=== PATIENT | female | born 1940 | race Caucasian/White ===

== ENCOUNTER 2019-06-14 15:24 | Inpatient (IN) | payer MEDICARE, OTHER ==
[~2019-06-14] VITALS: Ht 157.5 cm; Wt 66.4 kg
--- NOTE | 2019-06-14 16:16 | EKG ---
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
--- NOTE | 2019-06-14 16:42 | RAD ---
EXAM: Chest, single view. HISTORY: Congestive heart failure. COMPARISON: None. FINDINGS: A frontal view of the chest is obtained. There is mild diffuse increased interstitial opacity likely due to mild congestion. There is superimposed suspected left basilar atelectasis or interstitial infiltrate. There is a small nodular right suprahilar opacity likely due to a prominent pulmonary vascular shadow. No pneumothorax is seen. The heart is normal in size. IMPRESSION: Suspected mild pulmonary congestion with superimposed left lower lobe atelectasis or infiltrate. Electronically signed by: Elvie Guaman MD (06/14/2019 4:38 PM) [place] [id number]
[2019-06-14 16:58] LABS: BASO % 0 % (0-3); EOS # 0.1 x10^3/uL (0.0-0.7); EOS % 1 % (0-3); HEMATOCRIT 35.6 % (36.0-47.0); HEMOGLOBIN 12.3 g/dL (12.0-15.5); LYMPH # 0.6 x10^3/uL (1.0-4.8); LYMPH % 6 % (24-48); MEAN CORPUSCULAR HEMOGLOBIN 31 pg (25-35); MEAN CORPUSCULAR HGB CONC 35 g/dL (31-37); MEAN CORPUSCULAR VOLUME 90 fL (79-100); MONO # 0.7 x10^3/uL (0.0-1.1); MONO % 7 % (0-9); NEUT # 8.8 x10^3/uL (1.8-7.7); NEUT % 86 % (31-73); PLATELET COUNT 394 x10^3/uL (140-400); RED BLOOD COUNT 3.95 x10^6/uL (3.50-5.40); RED CELL DISTRIBUTION WIDTH 14.5 % (11.5-14.5); WHITE BLOOD COUNT 10.2 x10^3/uL (4.0-11.0)
[2019-06-14 17:00] LABS: CALCIUM 9.1 mg/dL (8.5-10.1); GFR 53.8; POTASSIUM 4.8 mmol/L (3.5-5.1)
[2019-06-14 17:09] LABS: ALBUMIN/GLOBULIN RATIO 0.8 (1.0-1.7); MAGNESIUM 0.6 mg/dL (1.8-2.4); TOTAL BILIRUBIN 0.5 mg/dL (0.2-1.0); TOTAL PROTEIN 6.7 g/dL (6.4-8.2)
[2019-06-14 17:38] LABS: BILIRUBIN,URINE NEGATIVE (NEG); CLARITY,URINE CLEAR; COLOR,URINE YELLOW; NITRITE,URINE NEGATIVE (NEG); PH,URINE 5.5; PROTEIN,URINE >=300 mg/dL (NEG-TRACE)
[2019-06-14 17:44] LABS: BARBITURATES NEG (NEG); BENZODIAZEPINES NEG (NEG); CANNABINOIDS NEG (NEG); COCAINE NEG (NEG); METHADONE NEG (NEG); OPIATES NEG (NEG); PHENCYCLIDINE NEG (NEG)
[2019-06-14 17:52] LABS: HYALINE CASTS, URINE FEW /HPF
[2019-06-14 17:53] LABS: BACTERIA,URINE 0 /HPF (0-FEW); RBC,URINE OCC /HPF (0-2); WBC,URINE OCC /HPF (0-4)
[2019-06-14 18:03] LABS: AMPHETAMINE/METHAMPHETAMINE NEG (NEG)
[2019-06-14 18:11] LABS: % BANDS 5 % (0-9); % BASOS 1 % (0-3); % LYMPHS 5 % (24-48); % MONOS 8 % (0-10); % SEGS 81 % (35-66)
[2019-06-14 18:13] LABS: PLT ESTIMATE ADEQUATE (ADEQUATE)
[2019-06-14 18:23] LABS: ACANTHOCYTES FEW; BURR CELLS PRESENT; SCHISTOCYTES FEW; SPHEROCYTES OCC
[2019-06-14] MEDS ORDERED: IV NORMAL SALINE 1000ML BAG 1,000 ML IV ONE (19:30)
[2019-06-14] MEDS ORDERED: FUROSEMIDE 40 MG/4 ML VIAL. IVP ONE (19:30)
[2019-06-14] MEDS ORDERED: IV DEXTROSE 5% 250 ML BAG. IV PRN (19:30)
[2019-06-14] MEDS ORDERED: ACETAMINOPHEN 325 MG TABLET. PO PRN (19:30)
[2019-06-14] MEDS ORDERED: DEXTROSE 50% 25 GM / 50ML DISP.SYRIN. IV PRN (19:30)
[2019-06-14] MEDS ORDERED: ONDANSETRON PF 4 MG/2 ML VIAL. IV PRN (19:30)
[2019-06-14] MEDS ORDERED: MORPHINE SULFATE 2 MG/ML VIAL. IV PRN (19:30)
--- NOTE | 2019-06-14 20:10 | PHYS DOC ---
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 Patient was seen by the PCP and was sent to the ED to be admitted for CHF exacerbation. PCP had called me and informed me this patient has had increased weight gain with lower extremity edema and shortness of breath on exertion that he noted when patient showed up in the office. Patient is very hard of hearing. Patient denies any chest pain. On arrival to the ED patient stated she has not urinated since this morning. She states she has tried several times to urinate with no success. PCP Dr. Britton (AWAIS GENTILE APRN) Review of Systems Review of Systems Constitutional: Denies fever or chills [] Eyes: Denies change in visual acuity, redness, or eye pain [] HENT: Denies nasal congestion or sore throat [] Respiratory: Reports shortness of breath on exertion. Denies cough Cardiovascular: Reports CHF exacerbation, lower extremity swelling, weight gain GI: Denies abdominal pain, nausea, vomiting, bloody stools or diarrhea [] : Reports urinary retention. Denies dysuria or hematuria [] Musculoskeletal: Denies back pain or joint pain [] Integument: Denies rash or skin lesions [] Neurologic: Denies headache, focal weakness or sensory changes [] All other systems were reviewed and found to be within normal limits, except as documented in this note. (AWAIS GENTILE APRN) Current Medications Current Medications Current Medications Medications (Trade) Dose Ordered Sig/Carlos Manuel Start Time Stop Time Status Last Admin Dose Admin Acetaminophen (Tylenol) 650 mg PRN Q4HRS PRN 06/14/19 19:30 06/15/19 19:29 DC 06/14/19 23:16 650 MG Dextrose 250 ml PRN Q15MIN PRN 06/14/19 19:30 Dextrose (Dextrose 50%-Water Syringe) 12.5 gm PRN Q15MIN PRN 06/14/19 19:30 Furosemide (Lasix) 40 mg 1X ONCE 06/14/19 19:30 06/14/19 19:35 DC 06/14/19 20:20 40 MG Morphine Sulfate (Morphine Sulfate) 2 mg PRN Q2HR PRN 06/14/19 19:30 06/15/19 19:29 DC Ondansetron HCl (Zofran) 4 mg PRN Q8HRS PRN 06/14/19 19:30 06/15/19 19:29 DC Sodium Chloride 1,000 ml @ 60 mls/hr 1X ONCE 06/14/19 19:30 06/15/19 12:09 DC 06/14/19 20:36 60 MLS/HR (RYAN BOLIVAR MD) Allergies Allergies Allergies Coded Allergies Type Severity Reaction Last Updated Verified No Known Drug Allergies 06/14/19 No (RYAN BOLIVAR MD) Physical Exam Physical Exam Constitutional: Well developed, well nourished, no acute distress, non-toxic appearance. [] HENT: Normocephalic, atraumatic, bilateral external ears normal, oropharynx moist, no oral exudates, nose normal. [] Eyes: PERRLA, EOMI, conjunctiva normal, no discharge. [] Neck: Normal range of motion, no tenderness, supple, no stridor. [] Cardiovascular:Heart rate regular rhythm, no murmur [] Lungs & Thorax: Patient is short of air on exertion, lungs sound moist Abdomen: Bowel sounds normal, soft, no tenderness, no masses, no pulsatile masses. [] Skin: Warm, dry, no erythema, no rash. [] Back: No tenderness, no CVA tenderness. [] Extremities: No tenderness, no cyanosis, no clubbing, ROM intact, bilateral lower extremities with +2 pitting edema. Neurologic: Alert and oriented X 3, normal motor function, normal sensory function, no focal deficits noted. [] Psychologic: Affect normal, judgement normal, mood normal. [] (AWAIS GENTILE APRN) Current Patient Data Vital Signs Vital Signs Date Time Temp Pulse Resp B/P (MAP) Pulse Ox O2 Delivery O2 Flow Rate FiO2 06/14/19 19:07 102 22 130/83 (99) 94 Room Air 06/14/19 16:10 97.5 97.5 (RYAN BOLIVAR MD) Lab Values Laboratory Tests Test 06/14/19 16:41 06/14/19 17:30 White Blood Count 10.2 x10^3/uL (4.0-11.0) Red Blood Count 3.95 x10^6/uL (3.50-5.40) Hemoglobin 12.3 g/dL (12.0-15.5) Hematocrit 35.6 % (36.0-47.0) L Mean Corpuscular Volume 90 fL (79-100) Mean Corpuscular Hemoglobin 31 pg (25-35) Mean Corpuscular Hemoglobin Concent 35 g/dL (31-37) Red Cell Distribution Width 14.5 % (11.5-14.5) Platelet Count 394 x10^3/uL (140-400) Neutrophils (%) (Auto) 86 % (31-73) H Lymphocytes (%) (Auto) 6 % (24-48) L Monocytes (%) (Auto) 7 % (0-9) Eosinophils (%) (Auto) 1 % (0-3) Basophils (%) (Auto) 0 % (0-3) Neutrophils # (Auto) 8.8 x10^3/uL (1.8-7.7) H Lymphocytes # (Auto) 0.6 x10^3/uL (1.0-4.8) L Monocytes # (Auto) 0.7 x10^3/uL (0.0-1.1) Eosinophils # (Auto) 0.1 x10^3/uL (0.0-0.7) Basophils # (Auto) 0.0 x10^3/uL (0.0-0.2) Segmented Neutrophils % 81 % (35-66) H Band Neutrophils % 5 % (0-9) Lymphocytes % 5 % (24-48) L Monocytes % 8 % (0-10) Basophils % 1 % (0-3) Platelet Estimate Adequate (ADEQUATE) Spherocytes Occ Colp Cells Present Crenated Cell Acanthocytes (Spur Cells) Few Schistocytes Few Sodium Level 122 mmol/L (136-145) L Potassium Level 4.8 mmol/L (3.5-5.1) Chloride Level 90 mmol/L (98-107) L Carbon Dioxide Level 19 mmol/L (21-32) L Anion Gap 13 (6-14) Blood Urea Nitrogen 24 mg/dL (7-20) H Creatinine 1.0 mg/dL (0.6-1.0) Estimated GFR (Cockcroft-Gault) 53.8 BUN/Creatinine Ratio 24 (6-20) H Glucose Level 206 mg/dL (70-99) H Calcium Level 9.1 mg/dL (8.5-10.1) Magnesium Level 0.6 mg/dL (1.8-2.4) L Total Bilirubin 0.5 mg/dL (0.2-1.0) Aspartate Amino Transferase (AST) 25 U/L (15-37) Alanine Aminotransferase (ALT) 19 U/L (14-59) Alkaline Phosphatase 46 U/L (46-116) Creatine Kinase 191 U/L (26-192) Creatine Kinase MB (Mass) 5.7 ng/mL (0.0-3.6) H Creatine Kinase MB Relative Index 3.0 % (0-4) Troponin I Quantitative 0.019 ng/mL (0.000-0.055) PH-Exq-K-Type Natriuretic Peptide 32357 pg/mL (0-449) H Total Protein 6.7 g/dL (6.4-8.2) Albumin 3.0 g/dL (3.4-5.0) L Albumin/Globulin Ratio 0.8 (1.0-1.7) L Urine Collection Type U cath Urine Color Yellow Urine Clarity Clear Urine pH 5.5 Urine Specific [place] 1.025 Urine Protein >=300 mg/dL (NEG-TRACE) Urine Glucose (UA) Negative mg/dL (NEG) Urine Ketones (Stick) Negative mg/dL (NEG) Urine Blood Negative (NEG) Urine Nitrite Negative (NEG) Urine Bilirubin Negative (NEG) Urine Urobilinogen Dipstick 1.0 mg/dL (0.2 mg/dL) Urine Leukocyte Esterase Negative (NEG) Urine RBC Occ /HPF (0-2) Urine WBC Occ /HPF (0-4) Urine Bacteria 0 /HPF (0-FEW) Urine Hyaline Casts Few /HPF Urine Mucus Mod /LPF Urine Opiates Screen Neg (NEG) Urine Methadone Screen Neg (NEG) Urine Barbiturates Neg (NEG) Urine Phencyclidine Screen Neg (NEG) Urine Amphetamine/Methamphetamine Neg (NEG) Urine Benzodiazepines Screen Neg (NEG) Urine Cocaine Screen Neg (NEG) Urine Cannabinoids Screen Neg (NEG) Urine Ethyl Alcohol Neg (NEG) Laboratory Tests 06/14/19 16:41 Laboratory Tests 06/14/19 16:41 (RYAN BOLIVAR MD) EKG EKG [address] Hendrix sinus tachycardia, HR 105 no STEMI[] (AWAIS GENTILE APRN) Radiology/Procedures Radiology/Procedures []PROCEDURE: PORTABLE CHEST 1V EXAM: Chest, single view. HISTORY: Congestive heart failure. COMPARISON: None. FINDINGS: A frontal view of the chest is obtained. There is mild diffuse increased interstitial opacity likely due to mild congestion. There is superimposed suspected left basilar atelectasis or interstitial infiltrate. There is a small nodular right suprahilar opacity likely due to a prominent pulmonary vascular shadow. No pneumothorax is seen. The heart is normal in size. IMPRESSION: Suspected mild pulmonary congestion with superimposed left lower lobe atelectasis or infiltrate. Electronically signed by: Elvie Ochoa MD (06/14/2019 4:38 PM) [place] [id number] DICTATED and SIGNED BY: ELVIE OCHOA MD DATE: 06/14/199 (AWAIS GENTILE APRN) Course & Med Decision Making Course & Med Decision Making Pertinent Labs and Imaging studies reviewed. (See chart for details) This is a 78-year-old female patient presenting to the ED today with complaints of CHF exacerbation. Patient was seen by the PCP was noted to have gained weight and has lower extremity edema from CHF exacerbation. Patient denies any chest pain on arrival. She also reports urinary retention. BVI was done,>700 mL of urine noted in the bladder. Ortiz was placed. Chest x-ray noted for CHF and possible infiltrate. Patient is a febrile, WBC is normal i do not believe she has an infiltrate CMP with sodium of 122, creatinine is normal, BUN is 24, glucose is 206, anion gap is normal. Urine analysis is negative for infection, BNP 19,[address] Park who requested we give patient normal saline at 60 mL an hour, 1 dose of Lasix. Spoke with Dr. Garcia who accepted patient for admission. Routine consult placed for cardiology for tomorrow morning Patient's O2 sats remained at 95% on room air. Blood pressure is stable in the 130s 80s. (AWAIS GENTILE APRN) Course & Med Decision Making Staff Physician Addendum: I was working in the ER during the course of this patient's visit. I was available for consultation as needed, but I was not directly involved in the care of this patient. (RYAN BOLIVAR MD) Dragon Disclaimer Dragon Disclaimer This electronic medical record was generated, in whole or in part, using a voice recognition dictation system. (AWAIS GENTILE APRN) Departure Departure Impression: Primary Impression: CHF exacerbation Additional Impressions: Hyponatremia Hyperglycemia Disposition: ADMITTED INPATIENT Condition: STABLE Referrals: AN BRITTON MD (PCP) Problem Qualifiers Primary Impression: CHF exacerbation Heart failure type: unspecified Qualified Codes: I50.9 - Heart failure, unspecified AWAIS GENTILE APRN Jun 14, 2019 20:10 RYAN BOLIVAR MD Jun 16, 2019 01:06
--- NOTE | 2019-06-14 20:33 | HP ---
ADMIT DATE: 06/14/2019 CHIEF COMPLAINT: Shortness of breath. 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 Basically, she came in with shortness of breath and some edema. She is in heart failure. She rates it 7/10. She has associated weakness, has been occurring for several days. I discussed the case with ER physician. We are going to diurese her and consult Cardiology. It should be noted that her sodium level was quite low as well at 121. We are going to have Nephrology, give a second opinion about that. PAST MEDICAL HISTORY: CHF, diabetes, hypertension, hyperlipidemia, hypothyroidism, esophageal stricture and tonsillectomy. ALLERGIES: None. FAMILY HISTORY: Diabetes. SOCIAL HISTORY: She does not drink, smoke or take drugs. 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 MEDICATIONS: Reviewed, please refer to the MRAD. REVIEW OF SYSTEMS: GENERAL: No history of weight change, weakness or fevers. SKIN: No bruising, hair changes or rashes. EYES: No blurred, double or loss of vision. NOSE AND THROAT: No history of nosebleeds, hoarseness or sore throat. HEART: No history of palpitations, chest pain or shortness of breath on exertion. LUNGS: She complains of shortness of breath. GASTROINTESTINAL: Denies changes in appetite, nausea, vomiting, diarrhea or constipation. GENITOURINARY: No history of frequency, urgency, hesitancy or nocturia. NEUROLOGIC: Denies history of numbness, tingling, tremor or weakness. PSYCHIATRIC: No history of panic, anxiety or depression. ENDOCRINE: No history of heat or cold intolerance, polyuria or polydipsia. EXTREMITIES: Denies muscle weakness, joint pain, pain on walking or stiffness. PHYSICAL EXAMINATION: VITALS: Within normal limits and are stable. GENERAL: No apparent distress. Alert and oriented. HEENT: Head is normocephalic, atraumatic, pupils were equally round and reactive to light and accommodation. NECK: Supple, no JVD, no thyromegaly was noted. LUNGS: Clear to auscultation in all lung way without rhonchi or wheezing. HEART: RRR, S1, S2 present. Peripheral pulses intact, no obvious murmurs were noted. ABDOMEN: Soft, nontender. Positive bowel sounds no organomegaly, normal bowel sounds. EXTREMITIES: Without any cyanosis, clubbing, or edema. Pedal pulses intact, Homans sign is negative. NEUROLOGIC: Normal speech, normal tone. A & O x 3, moves all extremities, no obvious focal deficits. PSYCHIATRIC: Normal affect, normal mood. Stable. SKIN: No ulcerations or rashes, good skin turgor, no jaundice. VASCULAR: Good capillary refill, neurovascular bundle appears to be intact. LABORATORY DATA: Sodium is 121. DIAGNOSTIC DATA: Chest x-ray, it shows vascular congestion consistent with heart failure. ASSESSMENT AND PLAN: Acute on chronic systolic and diastolic heart failure. The patient has been admitted. We will consult Cardiology, consult Nephrology. Home meds, deep venous thrombosis prophylaxis. FULL CODE. PROGNOSIS: Guarded. CHELSEA HONG DO DR: ROSELYN/vance JOB#: [id number] / [id number]
--- NOTE | 2019-06-14 22:15 | NUR ---
Patient admitted to room 114 as CVC overflow. Patient made comfortable in bed with understanding of unit surroundings and protocols. Patient placed on monitor. ER one time order of IV fluids not continued due to retaining fluid and wet lung sounds. All questions and concerns addressed. Will continue to monitor patient condition.
[2019-06-14 23:00] VITALS: BP 132/89
[2019-06-14] MEDS ORDERED: AMLO1CAP5 PO (23:00)
[2019-06-14] MEDS ORDERED: METF500T16 PO (23:00)
[2019-06-14] MEDS ORDERED: ATOR10TA60 PO (23:00)
[2019-06-14] MEDS ORDERED: FENO54TA PO (23:00)
[2019-06-14] MEDS ORDERED: PANT40TA77 PO (23:00)
[2019-06-14] MEDS ORDERED: LEVO100T5 PO (23:00)
[2019-06-14] MEDS ORDERED: CYAN-25 IM (23:00)
[2019-06-15] VITALS (7 sets, daily range): BP systolic 97–172; BP diastolic 60–86
[2019-06-15 05:04] LABS: BASO # 0.1 x10^3/uL (0.0-0.2); BASO % 1 % (0-3); EOS # 0.2 x10^3/uL (0.0-0.7); EOS % 2 % (0-3); HEMATOCRIT 35.9 % (36.0-47.0); HEMOGLOBIN 12.6 g/dL (12.0-15.5); LYMPH # 0.9 x10^3/uL (1.0-4.8); LYMPH % 9 % (24-48); MEAN CORPUSCULAR HEMOGLOBIN 32 pg (25-35); MEAN CORPUSCULAR HGB CONC 35 g/dL (31-37); MEAN CORPUSCULAR VOLUME 90 fL (79-100); MONO % 10 % (0-9); NEUT # 8.2 x10^3/uL (1.8-7.7); NEUT % 79 % (31-73); PLATELET COUNT 377 x10^3/uL (140-400); RED BLOOD COUNT 3.99 x10^6/uL (3.50-5.40); RED CELL DISTRIBUTION WIDTH 14.7 % (11.5-14.5); WHITE BLOOD COUNT 10.3 x10^3/uL (4.0-11.0)
[2019-06-15 05:13] LABS: CREATININE 0.9 mg/dL (0.6-1.0); GFR 60.7; POTASSIUM 4.6 mmol/L (3.5-5.1)
--- NOTE | 2019-06-15 07:17 | NUR ---
Routine consults called to answering service for Gissell Park and [place].
[2019-06-15] MEDS: INSULIN LISPRO 300 UNITS/3 ML VIAL. SQ SCH ×3 (08:00→16:33)
[2019-06-15 08:22] LABS: CHOLESTEROL/HDL RATIO 2.3
[2019-06-15] MEDS: NYSTATIN TOPICAL POWDER 15GM BOTTLE. TP SCH ×2 (09:43→22:30)
--- NOTE | 2019-06-15 10:26 | PDOC2 ---
ANGELO PADILLA COMP FIELD CASE MANAGER 06/15/19 1026: CARDIAC CONSULT DATE OF CONSULT Date of Consult DATE: 06/15/19 TIME: 10:23 REASON FOR CONSULT Reason for Consult: CHF REFERRING PHYSICIAN Referring Physician: Estephania SOURCE Source: Chart review HISTORY OF PRESENT ILLNESS HISTORY OF PRESENT ILLNESS This is a pleasant 78 yo female admitted for complains of shortness of breath. 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 She thinks her symptoms started after her Vit B12 shot last Wednesday. This has been going on at least in the last 3 days. No chest pain but at times does feel dizzy. No nausea or vomiting but has been difficult for her to lay flat. No palpitations. Also her legs have become more swollen that usual. She also has been having difficulty emptying her bladder. Her SOA is worse when walking. She also has recent decreased to her thyroid medication dosing from 125 to 100 mcg. No prior hx of CAD, VTE, or arrhythmias. PAST MEDICAL HISTORY Past Medical History Past Medical History: CHF, Diabetes-Type II, GERD, High Cholesterol, Hypertension, Hypothyroid, Other Additional Past Medical Histor: esophageal stricture Past Surgical History: Tonsillectomy, Other Additional Past Surgical Histo: dialation of esophagus Cardiovascular: HTN, Hyperlipidemia Pulmonary: Pneumonia CENTRAL NERVOUS SYSTEM: Other (No pertinent history) GI: GERD, Other (esophageal stricture) Heme/Onc: No pertinent hx Hepatobiliary: No pertinent hx Psych: No pertinent hx Musculoskeletal: Osteoarthritis Rheumatologic: No pertinent hx Infectious disease: No pertinent hx ENT: No pertinent hx Endocrine: Diabetes (2), Hypothyroidism Dermatology: No pertinent hx PAST SURGICAL HISTORY Past Surgical History: Tonsillectomy, Other (esophageal dilatation) FAMILY HISTORY Family History noncontributory SOCIAL HISTORY Smoke: No ALCOHOL: none Drugs: None Lives: with Family CURRENT MEDICATIONS CURRENT MEDICATIONS Current Medications Medications (Trade) Dose Ordered Sig/Carlos Manuel Route PRN Reason Start Time Stop Time Status Last Admin Dose Admin Furosemide (Lasix) 40 mg 1X ONCE IVP 06/14/19 19:30 06/14/19 19:35 DC 06/14/19 20:20 Acetaminophen (Tylenol) 650 mg PRN Q4HRS PRN PO FEVER 06/14/19 19:30 06/15/19 19:29 06/14/19 23:16 Sodium Chloride 1,000 ml @ 60 mls/hr 1X ONCE IV 06/14/19 19:30 06/15/19 12:09 06/14/19 20:36 Nystatin (Nystop) 1 meg BID TP 06/15/19 09:00 06/15/19 09:43 ALLERGIES ALLERGIES: Coded Allergies: No Known Drug Allergies (Unverified , 06/14/19) ROS Review of System 14 point ROS evaluated with pertinent positives noted per HPI PHYSICAL EXAM General: Alert, Oriented X3, Cooperative, mild distress HEENT: Atraumatic, Mucous membr. moist/pink Lungs: Other (basilar crackles) Heart: Regular rate (SR/ST), Normal S1, Normal S2, Other (S4; distant heart sounds) Extremities: No cyanosis, Other (4+ bilateral LE pitting edema) Skin: No breakdown, No significant lesion Neuro: Normal speech, Sensation intact Psych/Mental Status: Mental status NL, Mood NL MUSCULOSKELETAL: Osteoarthritic changes both hands VITALS/I&O VITALS/I&O: Vital Signs Date Time Temp Pulse Resp B/P (MAP) Pulse Ox O2 Delivery O2 Flow Rate FiO2 06/15/19 07:00 97.6 74 18 102/60 (74) 96 Room Air 97.6 I & O 06/14/19 06/14/19 06/15/19 15:00 23:00 07:00 Output Total 950 ml Balance -950 ml LABS Lab: Laboratory Tests Test 06/14/19 16:41 06/14/19 17:30 06/15/19 04:45 06/15/19 07:36 White Blood Count 10.2 x10^3/uL (4.0-11.0) 10.3 x10^3/uL (4.0-11.0) Red Blood Count 3.95 x10^6/uL (3.50-5.40) 3.99 x10^6/uL (3.50-5.40) Hemoglobin 12.3 g/dL (12.0-15.5) 12.6 g/dL (12.0-15.5) Hematocrit 35.6 % (36.0-47.0) L 35.9 % (36.0-47.0) L Mean Corpuscular Volume 90 fL (79-100) 90 fL (79-100) Mean Corpuscular Hemoglobin 31 pg (25-35) 32 pg (25-35) Mean Corpuscular Hemoglobin Concent 35 g/dL (31-37) 35 g/dL (31-37) Red Cell Distribution Width 14.5 % (11.5-14.5) 14.7 % (11.5-14.5) H Platelet Count 394 x10^3/uL (140-400) 377 x10^3/uL (140-400) Neutrophils (%) (Auto) 86 % (31-73) H 79 % (31-73) H Lymphocytes (%) (Auto) 6 % (24-48) L 9 % (24-48) L Monocytes (%) (Auto) 7 % (0-9) 10 % (0-9) H Eosinophils (%) (Auto) 1 % (0-3) 2 % (0-3) Basophils (%) (Auto) 0 % (0-3) 1 % (0-3) Neutrophils # (Auto) 8.8 x10^3/uL (1.8-7.7) H 8.2 x10^3/uL (1.8-7.7) H Lymphocytes # (Auto) 0.6 x10^3/uL (1.0-4.8) L 0.9 x10^3/uL (1.0-4.8) L Monocytes # (Auto) 0.7 x10^3/uL (0.0-1.1) 1.0 x10^3/uL (0.0-1.1) Eosinophils # (Auto) 0.1 x10^3/uL (0.0-0.7) 0.2 x10^3/uL (0.0-0.7) Basophils # (Auto) 0.0 x10^3/uL (0.0-0.2) 0.1 x10^3/uL (0.0-0.2) Segmented Neutrophils % 81 % (35-66) H Band Neutrophils % 5 % (0-9) Lymphocytes % 5 % (24-48) L Monocytes % 8 % (0-10) Basophils % 1 % (0-3) Platelet Estimate Adequate (ADEQUATE) Spherocytes Occ Deb Cells Present Crenated Cell Acanthocytes (Spur Cells) Few Schistocytes Few Sodium Level 122 mmol/L (136-145) L 123 mmol/L (136-145) L Potassium Level 4.8 mmol/L (3.5-5.1) 4.6 mmol/L (3.5-5.1) Chloride Level 90 mmol/L (98-107) L 90 mmol/L (98-107) L Carbon Dioxide Level 19 mmol/L (21-32) L 23 mmol/L (21-32) Anion Gap 13 (6-14) 10 (6-14) Blood Urea Nitrogen 24 mg/dL (7-20) H 22 mg/dL (7-20) H Creatinine 1.0 mg/dL (0.6-1.0) 0.9 mg/dL (0.6-1.0) Estimated GFR (Cockcroft-Gault) 53.8 60.7 BUN/Creatinine Ratio 24 (6-20) H Glucose Level 206 mg/dL (70-99) H 150 mg/dL (70-99) H Calcium Level 9.1 mg/dL (8.5-10.1) 9.0 mg/dL (8.5-10.1) Magnesium Level 0.6 mg/dL (1.8-2.4) L Total Bilirubin 0.5 mg/dL (0.2-1.0) Aspartate Amino Transferase (AST) 25 U/L (15-37) Alanine Aminotransferase (ALT) 19 U/L (14-59) Alkaline Phosphatase 46 U/L (46-116) Creatine Kinase 191 U/L (26-192) Creatine Kinase MB (Mass) 5.7 ng/mL (0.0-3.6) H Creatine Kinase MB Relative Index 3.0 % (0-4) Troponin I Quantitative 0.019 ng/mL (0.000-0.055) 0.024 ng/mL (0.000-0.055) SO-Rry-W-Type Natriuretic Peptide 92787 pg/mL (0-449) H Total Protein 6.7 g/dL (6.4-8.2) Albumin 3.0 g/dL (3.4-5.0) L Albumin/Globulin Ratio 0.8 (1.0-1.7) L Urine Collection Type U cath Urine Color Yellow Urine Clarity Clear Urine pH 5.5 Urine Specific [place] 1.025 Urine Protein >=300 mg/dL (NEG-TRACE) Urine Glucose (UA) Negative mg/dL (NEG) Urine Ketones (Stick) Negative mg/dL (NEG) Urine Blood Negative (NEG) Urine Nitrite Negative (NEG) Urine Bilirubin Negative (NEG) Urine Urobilinogen Dipstick 1.0 mg/dL (0.2 mg/dL) Urine Leukocyte Esterase Negative (NEG) Urine RBC Occ /HPF (0-2) Urine WBC Occ /HPF (0-4) Urine Bacteria 0 /HPF (0-FEW) Urine Hyaline Casts Few /HPF Urine Mucus Mod /LPF Urine Opiates Screen Neg (NEG) Urine Methadone Screen Neg (NEG) Urine Barbiturates Neg (NEG) Urine Phencyclidine Screen Neg (NEG) Urine Amphetamine/Methamphetamine Neg (NEG) Urine Benzodiazepines Screen Neg (NEG) Urine Cocaine Screen Neg (NEG) Urine Cannabinoids Screen Neg (NEG) Urine Ethyl Alcohol Neg (NEG) Triglycerides Level 84 mg/dL (0-150) Cholesterol Level 112 mg/dL (0-200) LDL Cholesterol, Calculated 47 mg/dL (0-100) VLDL Cholesterol, Calculated 17 mg/dL (0-40) Non-HDL Cholesterol Calculated 64 mg/dL (0-129) HDL Cholesterol 48 mg/dL (40-60) Cholesterol/HDL Ratio 2.3 Thyroid Stimulating Hormone (TSH) 7.661 uIU/mL (0.358-3.74) H Glucose (Fingerstick) 136 mg/dL (70-99) H Laboratory Tests 06/14/19 16:41 06/15/19 04:45 Laboratory Tests 06/14/19 16:41 06/15/19 04:45 ASSESSMENT/PLAN ASSESSMENT/PLAN 1. Acute CHF with possible combined systolic/diastolic dysfunction 2. Hyponatremia: due to above 3. Urinary retention: defer to PCP, witt in place 4. Hypothyroidism: TSH not on goal at 7, recent decreased in dosing. per PCP 5. DM2 6. HTN: controlled Recommendations 1. Replace Mg 2. Lasix therapy 3. Further recommendations pending TTE LORENA LEWIS MD 06/15/192027: CARDIAC CONSULT ASSESSMENT/PLAN ASSESSMENT/PLAN Patient seen and examined. Agree with MACHINE HEEL BUILDER's assessment and plan. Continue diuresis for ac on chr systolic HF 2D echo showed EF 15-20% Plan cardiac cath once CHF better compensated Thank you for your consultation ANGELO PADILLA COMP FIELD CASE MANAGER Jun 15, 2019 10:26 LORENA LEWIS MD Jun 15, 2019 20:28
[2019-06-15] MEDS ORDERED: FUROSEMIDE 40 MG/4 ML VIAL. IVP ONE ×2 (10:30→12:00)
[2019-06-15] MEDS ORDERED: CONTRAST GIVEN. MC PRN (10:45)
[2019-06-15] MEDS: ENOXAPARIN 40 MG/0.4 ML SYRINGE. SQ SCH (10:58)
--- NOTE | 2019-06-15 11:33 | PDOC ---
[employer] PROGRESS NOTE Chief Complaint Chief Complaint CHF exacerbation Hyponatremia Urinary retention Hyperglycemia History of Present Illness History of Present Illness 06/15/19 Pt seen and examined in seat Pt was not in acute distress Chart and labs reviewed Sodium was 123, up from 122 BUN was 22, down from 24 Cr remained 0.9 D/w RN Vitals/I&O Vitals/I&O: Vital Signs Date Time Temp Pulse Resp B/P (MAP) Pulse Ox O2 Delivery O2 Flow Rate FiO2 06/15/19 07:00 97.6 74 18 102/60 (74) 96 Room Air 97.6 I & O 06/14/19 06/14/19 06/15/19 14:59 22:59 06:59 Output Total 950 ml Balance -950 ml Physical Exam General: Alert, Oriented X3, Cooperative, No acute distress Heart: Regular rate Lungs: Clear Extremities: No clubbing, No cyanosis Skin: No rashes Labs Labs: Laboratory Tests Test 06/14/19 16:41 06/14/19 17:30 06/15/19 04:45 06/15/19 07:36 White Blood Count 10.2 x10^3/uL (4.0-11.0) 10.3 x10^3/uL (4.0-11.0) Red Blood Count 3.95 x10^6/uL (3.50-5.40) 3.99 x10^6/uL (3.50-5.40) Hemoglobin 12.3 g/dL (12.0-15.5) 12.6 g/dL (12.0-15.5) Hematocrit 35.6 % (36.0-47.0) 35.9 % (36.0-47.0) Mean Corpuscular Volume 90 fL (79-100) 90 fL (79-100) Mean Corpuscular Hemoglobin 31 pg (25-35) 32 pg (25-35) Mean Corpuscular Hemoglobin Concent 35 g/dL (31-37) 35 g/dL (31-37) Red Cell Distribution Width 14.5 % (11.5-14.5) 14.7 % (11.5-14.5) Platelet Count 394 x10^3/uL (140-400) 377 x10^3/uL (140-400) Neutrophils (%) (Auto) 86 % (31-73) 79 % (31-73) Lymphocytes (%) (Auto) 6 % (24-48) 9 % (24-48) Monocytes (%) (Auto) 7 % (0-9) 10 % (0-9) Eosinophils (%) (Auto) 1 % (0-3) 2 % (0-3) Basophils (%) (Auto) 0 % (0-3) 1 % (0-3) Neutrophils # (Auto) 8.8 x10^3/uL (1.8-7.7) 8.2 x10^3/uL (1.8-7.7) Lymphocytes # (Auto) 0.6 x10^3/uL (1.0-4.8) 0.9 x10^3/uL (1.0-4.8) Monocytes # (Auto) 0.7 x10^3/uL (0.0-1.1) 1.0 x10^3/uL (0.0-1.1) Eosinophils # (Auto) 0.1 x10^3/uL (0.0-0.7) 0.2 x10^3/uL (0.0-0.7) Basophils # (Auto) 0.0 x10^3/uL (0.0-0.2) 0.1 x10^3/uL (0.0-0.2) Segmented Neutrophils % 81 % (35-66) Band Neutrophils % 5 % (0-9) Lymphocytes % 5 % (24-48) Monocytes % 8 % (0-10) Basophils % 1 % (0-3) Platelet Estimate Adequate (ADEQUATE) Spherocytes Occ Hudson Cells Present Crenated Cell Acanthocytes Few Schistocytes Few Sodium Level 122 mmol/L (136-145) 123 mmol/L (136-145) Potassium Level 4.8 mmol/L (3.5-5.1) 4.6 mmol/L (3.5-5.1) Chloride Level 90 mmol/L (98-107) 90 mmol/L (98-107) Carbon Dioxide Level 19 mmol/L (21-32) 23 mmol/L (21-32) Anion Gap 13 (6-14) 10 (6-14) Blood Urea Nitrogen 24 mg/dL (7-20) 22 mg/dL (7-20) Creatinine 1.0 mg/dL (0.6-1.0) 0.9 mg/dL (0.6-1.0) Estimated GFR (Cockcroft-Gault) 53.8 60.7 BUN/Creatinine Ratio 24 (6-20) Glucose Level 206 mg/dL (70-99) 150 mg/dL (70-99) Calcium Level 9.1 mg/dL (8.5-10.1) 9.0 mg/dL (8.5-10.1) Magnesium Level 0.6 mg/dL (1.8-2.4) 0.7 mg/dL (1.8-2.4) Total Bilirubin 0.5 mg/dL (0.2-1.0) Aspartate Amino Transf (AST/SGOT) 25 U/L (15-37) Alanine Aminotransferase (ALT/SGPT) 19 U/L (14-59) Alkaline Phosphatase 46 U/L (46-116) Creatine Kinase 191 U/L (26-192) Creatine Kinase MB (Mass) 5.7 ng/mL (0.0-3.6) Creatine Kinase MB Relative Index 3.0 % (0-4) Troponin I Quantitative 0.019 ng/mL (0.000-0.055) 0.024 ng/mL (0.000-0.055) UH-Awo-K-Type Natriuretic Peptide 95973 pg/mL (0-449) Total Protein 6.7 g/dL (6.4-8.2) Albumin 3.0 g/dL (3.4-5.0) Albumin/Globulin Ratio 0.8 (1.0-1.7) Urine Collection Type U cath Urine Color Yellow Urine Clarity Clear Urine pH 5.5 Urine Specific [place] 1.025 Urine Protein >=300 mg/dL (NEG-TRACE) Urine Glucose (UA) Negative mg/dL (NEG) Urine Ketones (Stick) Negative mg/dL (NEG) Urine Blood Negative (NEG) Urine Nitrite Negative (NEG) Urine Bilirubin Negative (NEG) Urine Urobilinogen Dipstick 1.0 mg/dL (0.2 mg/dL) Urine Leukocyte Esterase Negative (NEG) Urine RBC Occ /HPF (0-2) Urine WBC Occ /HPF (0-4) Urine Bacteria 0 /HPF (0-FEW) Urine Hyaline Casts Few /HPF Urine Mucus Mod /LPF Urine Opiates Screen Neg (NEG) Urine Methadone Screen Neg (NEG) Urine Barbiturates Neg (NEG) Urine Phencyclidine Screen Neg (NEG) Urine Amphetamine/Methamphetamine Neg (NEG) Urine Benzodiazepines Screen Neg (NEG) Urine Cocaine Screen Neg (NEG) Urine Cannabinoids Screen Neg (NEG) Urine Ethyl Alcohol Neg (NEG) Triglycerides Level 84 mg/dL (0-150) Cholesterol Level 112 mg/dL (0-200) LDL Cholesterol, Calculated 47 mg/dL (0-100) VLDL Cholesterol, Calculated 17 mg/dL (0-40) Non-HDL Cholesterol Calculated 64 mg/dL (0-129) HDL Cholesterol 48 mg/dL (40-60) Cholesterol/HDL Ratio 2.3 Thyroid Stimulating Hormone (TSH) 7.661 uIU/mL (0.358-3.74) Glucose (Fingerstick) 136 mg/dL (70-99) Review of Systems Review of Systems: Pt denies fever Pt denies NICKERSON Assessment and Plan Assessmemt and Plan Problems Medical Problems: (1) CHF exacerbation Status: Acute (2) Hyperglycemia Status: Acute (3) Hyponatremia Status: Acute Assessment CHF exacerbation Hyponatremia Hyperglycemia Plan ICU monitoring Serial labs DVT prophylaxis Await further input from cardiology Await input from nephrology Full code Home meds Comment Review of Relevant I have reviewed the following items kameron (where applicable) has been applied. Medications: Current Medications Medications (Trade) Dose Ordered Sig/Carlos Manuel Route PRN Reason Start Time Stop Time Status Last Admin Dose Admin Furosemide (Lasix) 40 mg 1X ONCE IVP 06/14/19 19:30 06/14/19 19:35 DC 06/14/19 20:20 Acetaminophen (Tylenol) 650 mg PRN Q4HRS PRN PO FEVER 06/14/19 19:30 06/15/19 19:29 06/14/19 23:16 Sodium Chloride 1,000 ml @ 60 mls/hr 1X ONCE IV 06/14/19 19:30 06/15/19 12:09 06/14/19 20:36 Nystatin (Nystop) 1 meg BID TP 06/15/19 09:00 06/15/19 09:43 Furosemide (Lasix) 40 mg 1X ONCE IVP 06/15/19 10:30 06/15/19 10:39 DC 06/15/19 10:57 Enoxaparin Sodium (Lovenox 40mg Syringe) 40 mg Q24H SQ 06/15/19 11:00 06/15/19 10:58 CHELSEA HONG III DO Jun 15, 2019 11:33
--- NOTE | 2019-06-15 11:51 | PDOC2 ---
CONSULT Date of Consult Date of Consult DATE: 06/15/19 TIME: 11:45 History of Present Illness Reason for Visit: THIS IS A 78 YR OLD WITH SOB FOR COUPLE DAYS. STATES SHE HAS HAD PROGRESSIVE LE SWELLING FOR WEEKS. NOW CANT LAY FLAT. SHE HAS ALSO NOTED WEIGHT GAIN. HER NA IS 122 ON ADMIT. NO CONFUSION REPORTED, NO OTHER NEURO SYMPTOMS REPORTED. RENAL FXN STABLE. SHE ALSO HAD URINARY RETENTION WITH ABOUT 700 MLS AND A PEPPER HAS BEEN PLACED. SHE HAS NOT BEEN ON ANY DIURETICS. SHE DOES HAVE A HX OF HYPOTHYROIDISM Past Medical History Cardiovascular: HTN, Hyperlipidemia Endocrine: Diabetes, Hypothyroidism Family History Family History: No Significant Social History No ALCOHOL: none Drugs: None Lives: with Family Current Problem List Problem List Problems Medical Problems: (1) CHF exacerbation Status: Acute (2) Hyperglycemia Status: Acute (3) Hyponatremia Status: Acute Current Medications Current Medications Current Medications Furosemide (Lasix) 40 mg 1X ONCE IVP Last administered on 06/14/19at 20:20; Start 06/14/19 at 19:30; Stop 06/14/19 at 19:35; Status DC Ondansetron HCl (Zofran) 4 mg PRN Q8HRS PRN IV NAUSEA/VOMITING; Start 06/14/19 at 19:30; Stop 06/15/19 at 19:29 Morphine Sulfate (Morphine Sulfate) 2 mg PRN Q2HR PRN IV PAIN; Start 06/14/19 at 19:30; Stop 06/15/19 at 19:29 Acetaminophen (Tylenol) 650 mg PRN Q4HRS PRN PO FEVER Last administered on 06/14/19at 23:16; Start 06/14/19 at 19:30; Stop 06/15/19 at 19:29 Sodium Chloride 1,000 ml @ 60 mls/hr 1X ONCE IV Last administered on 06/14/19at 20:36; Start 06/14/19 at 19:30; Stop 06/15/19 at 12:09 Insulin Human Lispro (HumaLOG) 0-5 UNITS TIDWMEALS SQ ; Start 06/15/19 at 08:00 Dextrose (Dextrose 50%-Water Syringe) 12.5 gm PRN Q15MIN PRN IV SEE COMMENTS; Start 06/14/19 at 19:30 Dextrose 250 ml PRN Q15MIN PRN IV SEE COMMENTS; Start 06/14/19 at 19:30 Nystatin (Nystop) 1 meg BID TP Last administered on 06/15/19at 09:43; Start 06/15/19 at 09:00 Furosemide (Lasix) 40 mg DAILY IVP ; Start 06/16/19 at 09:00 Furosemide (Lasix) 40 mg 1X ONCE IVP Last administered on 06/15/19at 10:57; Start 06/15/19 at 10:30; Stop 06/15/19 at 10:39; Status DC Enoxaparin Sodium (Lovenox 40mg Syringe) 40 mg Q24H SQ Last administered on 06/15/19at 10:58; Start 06/15/19 at 11:00 Info (CONTRAST GIVEN -- Rx MONITORING) 1 each PRN DAILY PRN MC SEE COMMENTS; Start 06/15/19 at 10:45; Stop 06/17/19 at 10:44 Active Scripts Active Reported Atorvastatin Calcium 10 Mg Tablet 1 Tab PO DAILY Metformin Hcl 500 Mg Tablet 500 Mg PO BIDWMEALS Fenofibrate 54 Mg Tablet 1 Tab PO QPM Lotrel 5-10 Mg Capsule (Amlodipine Besylate/Benazepril) 1 Each Capsule 1 Cap PO DAILY Vitamin B-12 (Cyanocobalamin (Vitamin B-12)) 1,000 Mcg Tablet 1,000 Mcg IM QMONTH Pantoprazole Sodium (Pantoprazole Sodium) 40 Mg Tablet.dr 40 Mg PO DAILYAC Levothyroxine Sodium 100 Mcg Tablet 1 Tab PO DAILY Allergies Allergies: Coded Allergies: No Known Drug Allergies (Unverified , 06/14/19) ROS General: YES: Fatigue, Malaise PSYCHOLOGICAL ROS: YES: Anxiety, Depression Eyes: Yes Decreased vision ALLERGY AND IMMUNOLOGY: YES: Seasonal Allergies Respiratory: YES: Cough, Orthopnea, Shortness of breath Cardiovascular: yes Orthopnea, yes Paroxysmal Noc. Dyspnea, yes Edema Gastrointestinal: Yes Constipation Genitourinary: YES Other (NOCTURIA) Musculoskeletal: Yes Muscular Weakness Neurological: Yes Weakness Skin: Yes Dry Skin Physical Exam General: Alert, Oriented X3, Cooperative, No acute distress HEENT: Atraumatic, PERRLA Lungs: Other (BASILAR RALES) Abdomen: Normal bowel sounds, Soft Extremities: No clubbing, No cyanosis, Other (4+ LE EDEMA) Neuro: Normal speech, Sensation intact Psych/Mental Status: Mental status NL, Mood NL MUSCULOSKELETAL: No joint tenderness, No deformity Vitals VITALS Vital Signs Date Time Temp Pulse Resp B/P (MAP) Pulse Ox O2 Delivery O2 Flow Rate FiO2 06/15/19 07:00 97.6 74 18 102/60 (74) 96 Room Air 97.6 Labs Labs Laboratory Tests Test 06/14/19 16:41 06/14/19 17:30 06/15/19 04:45 06/15/19 07:36 White Blood Count 10.2 x10^3/uL (4.0-11.0) 10.3 x10^3/uL (4.0-11.0) Red Blood Count 3.95 x10^6/uL (3.50-5.40) 3.99 x10^6/uL (3.50-5.40) Hemoglobin 12.3 g/dL (12.0-15.5) 12.6 g/dL (12.0-15.5) Hematocrit 35.6 % (36.0-47.0) 35.9 % (36.0-47.0) Mean Corpuscular Volume 90 fL (79-100) 90 fL (79-100) Mean Corpuscular Hemoglobin 31 pg (25-35) 32 pg (25-35) Mean Corpuscular Hemoglobin Concent 35 g/dL (31-37) 35 g/dL (31-37) Red Cell Distribution Width 14.5 % (11.5-14.5) 14.7 % (11.5-14.5) Platelet Count 394 x10^3/uL (140-400) 377 x10^3/uL (140-400) Neutrophils (%) (Auto) 86 % (31-73) 79 % (31-73) Lymphocytes (%) (Auto) 6 % (24-48) 9 % (24-48) Monocytes (%) (Auto) 7 % (0-9) 10 % (0-9) Eosinophils (%) (Auto) 1 % (0-3) 2 % (0-3) Basophils (%) (Auto) 0 % (0-3) 1 % (0-3) Neutrophils # (Auto) 8.8 x10^3/uL (1.8-7.7) 8.2 x10^3/uL (1.8-7.7) Lymphocytes # (Auto) 0.6 x10^3/uL (1.0-4.8) 0.9 x10^3/uL (1.0-4.8) Monocytes # (Auto) 0.7 x10^3/uL (0.0-1.1) 1.0 x10^3/uL (0.0-1.1) Eosinophils # (Auto) 0.1 x10^3/uL (0.0-0.7) 0.2 x10^3/uL (0.0-0.7) Basophils # (Auto) 0.0 x10^3/uL (0.0-0.2) 0.1 x10^3/uL (0.0-0.2) Segmented Neutrophils % 81 % (35-66) Band Neutrophils % 5 % (0-9) Lymphocytes % 5 % (24-48) Monocytes % 8 % (0-10) Basophils % 1 % (0-3) Platelet Estimate Adequate (ADEQUATE) Spherocytes Occ Deb Cells Present Crenated Cell Acanthocytes Few Schistocytes Few Sodium Level 122 mmol/L (136-145) 123 mmol/L (136-145) Potassium Level 4.8 mmol/L (3.5-5.1) 4.6 mmol/L (3.5-5.1) Chloride Level 90 mmol/L (98-107) 90 mmol/L (98-107) Carbon Dioxide Level 19 mmol/L (21-32) 23 mmol/L (21-32) Anion Gap 13 (6-14) 10 (6-14) Blood Urea Nitrogen 24 mg/dL (7-20) 22 mg/dL (7-20) Creatinine 1.0 mg/dL (0.6-1.0) 0.9 mg/dL (0.6-1.0) Estimated GFR (Cockcroft-Gault) 53.8 60.7 BUN/Creatinine Ratio 24 (6-20) Glucose Level 206 mg/dL (70-99) 150 mg/dL (70-99) Calcium Level 9.1 mg/dL (8.5-10.1) 9.0 mg/dL (8.5-10.1) Magnesium Level 0.6 mg/dL (1.8-2.4) 0.7 mg/dL (1.8-2.4) Total Bilirubin 0.5 mg/dL (0.2-1.0) Aspartate Amino Transf (AST/SGOT) 25 U/L (15-37) Alanine Aminotransferase (ALT/SGPT) 19 U/L (14-59) Alkaline Phosphatase 46 U/L (46-116) Creatine Kinase 191 U/L (26-192) Creatine Kinase MB (Mass) 5.7 ng/mL (0.0-3.6) Creatine Kinase MB Relative Index 3.0 % (0-4) Troponin I Quantitative 0.019 ng/mL (0.000-0.055) 0.024 ng/mL (0.000-0.055) GH-Nvo-M-Type Natriuretic Peptide 73502 pg/mL (0-449) Total Protein 6.7 g/dL (6.4-8.2) Albumin 3.0 g/dL (3.4-5.0) Albumin/Globulin Ratio 0.8 (1.0-1.7) Urine Collection Type U cath Urine Color Yellow Urine Clarity Clear Urine pH 5.5 Urine Specific [place] 1.025 Urine Protein >=300 mg/dL (NEG-TRACE) Urine Glucose (UA) Negative mg/dL (NEG) Urine Ketones (Stick) Negative mg/dL (NEG) Urine Blood Negative (NEG) Urine Nitrite Negative (NEG) Urine Bilirubin Negative (NEG) Urine Urobilinogen Dipstick 1.0 mg/dL (0.2 mg/dL) Urine Leukocyte Esterase Negative (NEG) Urine RBC Occ /HPF (0-2) Urine WBC Occ /HPF (0-4) Urine Bacteria 0 /HPF (0-FEW) Urine Hyaline Casts Few /HPF Urine Mucus Mod /LPF Urine Opiates Screen Neg (NEG) Urine Methadone Screen Neg (NEG) Urine Barbiturates Neg (NEG) Urine Phencyclidine Screen Neg (NEG) Urine Amphetamine/Methamphetamine Neg (NEG) Urine Benzodiazepines Screen Neg (NEG) Urine Cocaine Screen Neg (NEG) Urine Cannabinoids Screen Neg (NEG) Urine Ethyl Alcohol Neg (NEG) Triglycerides Level 84 mg/dL (0-150) Cholesterol Level 112 mg/dL (0-200) LDL Cholesterol, Calculated 47 mg/dL (0-100) VLDL Cholesterol, Calculated 17 mg/dL (0-40) Non-HDL Cholesterol Calculated 64 mg/dL (0-129) HDL Cholesterol 48 mg/dL (40-60) Cholesterol/HDL Ratio 2.3 Thyroid Stimulating Hormone (TSH) 7.661 uIU/mL (0.358-3.74) Glucose (Fingerstick) 136 mg/dL (70-99) Laboratory Tests Test 06/14/19 16:41 06/14/19 17:30 06/15/19 04:45 06/15/19 07:36 White Blood Count 10.2 x10^3/uL (4.0-11.0) 10.3 x10^3/uL (4.0-11.0) Red Blood Count 3.95 x10^6/uL (3.50-5.40) 3.99 x10^6/uL (3.50-5.40) Hemoglobin 12.3 g/dL (12.0-15.5) 12.6 g/dL (12.0-15.5) Hematocrit 35.6 % (36.0-47.0) 35.9 % (36.0-47.0) Mean Corpuscular Volume 90 fL (79-100) 90 fL (79-100) Mean Corpuscular Hemoglobin 31 pg (25-35) 32 pg (25-35) Mean Corpuscular Hemoglobin Concent 35 g/dL (31-37) 35 g/dL (31-37) Red Cell Distribution Width 14.5 % (11.5-14.5) 14.7 % (11.5-14.5) Platelet Count 394 x10^3/uL (140-400) 377 x10^3/uL (140-400) Neutrophils (%) (Auto) 86 % (31-73) 79 % (31-73) Lymphocytes (%) (Auto) 6 % (24-48) 9 % (24-48) Monocytes (%) (Auto) 7 % (0-9) 10 % (0-9) Eosinophils (%) (Auto) 1 % (0-3) 2 % (0-3) Basophils (%) (Auto) 0 % (0-3) 1 % (0-3) Neutrophils # (Auto) 8.8 x10^3/uL (1.8-7.7) 8.2 x10^3/uL (1.8-7.7) Lymphocytes # (Auto) 0.6 x10^3/uL (1.0-4.8) 0.9 x10^3/uL (1.0-4.8) Monocytes # (Auto) 0.7 x10^3/uL (0.0-1.1) 1.0 x10^3/uL (0.0-1.1) Eosinophils # (Auto) 0.1 x10^3/uL (0.0-0.7) 0.2 x10^3/uL (0.0-0.7) Basophils # (Auto) 0.0 x10^3/uL (0.0-0.2) 0.1 x10^3/uL (0.0-0.2) Segmented Neutrophils % 81 % (35-66) Band Neutrophils % 5 % (0-9) Lymphocytes % 5 % (24-48) Monocytes % 8 % (0-10) Basophils % 1 % (0-3) Platelet Estimate Adequate (ADEQUATE) Spherocytes Occ Deb Cells Present Crenated Cell Acanthocytes Few Schistocytes Few Sodium Level 122 mmol/L (136-145) 123 mmol/L (136-145) Potassium Level 4.8 mmol/L (3.5-5.1) 4.6 mmol/L (3.5-5.1) Chloride Level 90 mmol/L (98-107) 90 mmol/L (98-107) Carbon Dioxide Level 19 mmol/L (21-32) 23 mmol/L (21-32) Anion Gap 13 (6-14) 10 (6-14) Blood Urea Nitrogen 24 mg/dL (7-20) 22 mg/dL (7-20) Creatinine 1.0 mg/dL (0.6-1.0) 0.9 mg/dL (0.6-1.0) Estimated GFR (Cockcroft-Gault) 53.8 60.7 BUN/Creatinine Ratio 24 (6-20) Glucose Level 206 mg/dL (70-99) 150 mg/dL (70-99) Calcium Level 9.1 mg/dL (8.5-10.1) 9.0 mg/dL (8.5-10.1) Magnesium Level 0.6 mg/dL (1.8-2.4) 0.7 mg/dL (1.8-2.4) Total Bilirubin 0.5 mg/dL (0.2-1.0) Aspartate Amino Transf (AST/SGOT) 25 U/L (15-37) Alanine Aminotransferase (ALT/SGPT) 19 U/L (14-59) Alkaline Phosphatase 46 U/L (46-116) Creatine Kinase 191 U/L (26-192) Creatine Kinase MB (Mass) 5.7 ng/mL (0.0-3.6) Creatine Kinase MB Relative Index 3.0 % (0-4) Troponin I Quantitative 0.019 ng/mL (0.000-0.055) 0.024 ng/mL (0.000-0.055) ST-Sml-C-Type Natriuretic Peptide 38708 pg/mL (0-449) Total Protein 6.7 g/dL (6.4-8.2) Albumin 3.0 g/dL (3.4-5.0) Albumin/Globulin Ratio 0.8 (1.0-1.7) Urine Collection Type U cath Urine Color Yellow Urine Clarity Clear Urine pH 5.5 Urine Specific [place] 1.025 Urine Protein >=300 mg/dL (NEG-TRACE) Urine Glucose (UA) Negative mg/dL (NEG) Urine Ketones (Stick) Negative mg/dL (NEG) Urine Blood Negative (NEG) Urine Nitrite Negative (NEG) Urine Bilirubin Negative (NEG) Urine Urobilinogen Dipstick 1.0 mg/dL (0.2 mg/dL) Urine Leukocyte Esterase Negative (NEG) Urine RBC Occ /HPF (0-2) Urine WBC Occ /HPF (0-4) Urine Bacteria 0 /HPF (0-FEW) Urine Hyaline Casts Few /HPF Urine Mucus Mod /LPF Urine Opiates Screen Neg (NEG) Urine Methadone Screen Neg (NEG) Urine Barbiturates Neg (NEG) Urine Phencyclidine Screen Neg (NEG) Urine Amphetamine/Methamphetamine Neg (NEG) Urine Benzodiazepines Screen Neg (NEG) Urine Cocaine Screen Neg (NEG) Urine Cannabinoids Screen Neg (NEG) Urine Ethyl Alcohol Neg (NEG) Triglycerides Level 84 mg/dL (0-150) Cholesterol Level 112 mg/dL (0-200) LDL Cholesterol, Calculated 47 mg/dL (0-100) VLDL Cholesterol, Calculated 17 mg/dL (0-40) Non-HDL Cholesterol Calculated 64 mg/dL (0-129) HDL Cholesterol 48 mg/dL (40-60) Cholesterol/HDL Ratio 2.3 Thyroid Stimulating Hormone (TSH) 7.661 uIU/mL (0.358-3.74) Glucose (Fingerstick) 136 mg/dL (70-99) Assessment/Plan Assessment/Plan IMP SEVERE HYPONATREMIA URINARY RETENTION LE EDEMA DM II HTN HYPOTHYROIDISM CHF PLAN DIURESIS WITH LOOP DIURETICS CARDIOLOGY EVALUATION ECHOCARDIOGRAM WILL BE HELPFUL MAINTAIN PEPPER CHECK TSH LOW FLOW NS WILL FOLLOW DU VELAZQUEZ MD Jun 15, 2019 11:51
--- NOTE | 2019-06-15 13:51 | NUR ---
See orders, patient verb. understanding POC: magnesium and lasix IV, NPO for possible cardiac procedure. Patient sitting up in chair, no SOB, visiting with friends. Continue cares and monitor.
[2019-06-15] MEDS ORDERED: MAGNESIUM SULFATE 4GM 100 ML IV ONE (14:00)
--- NOTE | 2019-06-15 14:11 | NUR ---
Suze minaya. called, release NPO, no procedure today. Patient verb. understanding POC.
[2019-06-15] MEDS: FUROSEMIDE 40 MG/4 ML VIAL. IVP SCH ×2 (14:27→22:36)
--- NOTE | 2019-06-15 14:35 | NUR ---
SS following for discharge planning. SS reviewed pt chart. Pt is from home and is currently on room air. SS will continue to follow for discharge planning.
[2019-06-15] MEDS: ASPIRIN ENTERIC COATED 81 MG TABLET.DR. PO SCH (17:55)
[2019-06-15] MEDS: ZOLPIDEM 5 MG TABLET. PO PRN (22:36)
[2019-06-16] MEDS ORDERED: ACETAMINOPHEN 325 MG TABLET. PO PRN (02:45)
[2019-06-16 03:00] VITALS: BP 123/76
[2019-06-16 05:57] LABS: CALCIUM 8.6 mg/dL (8.5-10.1); CREATININE 0.9 mg/dL (0.6-1.0); GFR 60.7; MAGNESIUM 1.2 mg/dL (1.8-2.4); PHOSPHORUS 3.3 mg/dL (2.6-4.7); POTASSIUM 3.5 mmol/L (3.5-5.1)
[2019-06-16] MEDS: FUROSEMIDE 40 MG/4 ML VIAL. IVP SCH ×3 (06:45→20:36)
[2019-06-16 07:00] VITALS: BP 113/69
[2019-06-16] MEDS: INSULIN LISPRO 300 UNITS/3 ML VIAL. SQ SCH ×3 (08:00→16:58)
[2019-06-16] MEDS ORDERED: FUROSEMIDE 40 MG/4 ML VIAL. IVP SCH (09:00)
[2019-06-16] MEDS: ASPIRIN ENTERIC COATED 81 MG TABLET.DR. PO SCH (09:38)
[2019-06-16 11:00] VITALS: BP 105/60
[2019-06-16] MEDS ORDERED: MAGNESIUM SULFATE 2GM 50 ML IV ONE ×2 (11:30→12:00)
[2019-06-16] MEDS ORDERED: POTASSIUM CHLORIDE 20 MEQ TABLET.ER. PO ONE ×2 (11:30→12:00)
--- NOTE | 2019-06-16 11:30 | PDOC ---
Renal-Progress Notes Subjective Notes Notes SITTING UP History of Present Illness Hx of present illness STABLE Vitals Vitals Vital Signs Date Time Temp Pulse Resp B/P (MAP) Pulse Ox O2 Delivery O2 Flow Rate FiO2 06/16/19 08:00 Room Air 06/16/19 07:00 97.5 99 18 113/69 (84) 96 97.5 Weight Weight [ ] I.O. Intake and Output Intake and Output 06/16/19 07:00 Intake Total 810 ml Output Total 1750 ml Balance -940 ml Intake Oral 810 ml Output Urine Total 1750 ml Labs Labs Laboratory Tests Test 06/15/19 11:34 06/15/19 16:23 06/15/19 21:12 06/16/19 05:00 Glucose (Fingerstick) 207 mg/dL (70-99) 149 mg/dL (70-99) 148 mg/dL (70-99) Sodium Level 124 mmol/L (136-145) Potassium Level 3.5 mmol/L (3.5-5.1) Chloride Level 88 mmol/L (98-107) Carbon Dioxide Level 25 mmol/L (21-32) Anion Gap 11 (6-14) Blood Urea Nitrogen 20 mg/dL (7-20) Creatinine 0.9 mg/dL (0.6-1.0) Estimated GFR (Cockcroft-Gault) 60.7 Glucose Level 151 mg/dL (70-99) Calcium Level 8.6 mg/dL (8.5-10.1) Phosphorus Level 3.3 mg/dL (2.6-4.7) Magnesium Level 1.2 mg/dL (1.8-2.4) Review of Systems Constitutional: yes: weakness, alert, oriented Ears/Nose/Throat: Yes: no symptom reported Eyes: Yes: no symptom reported Pulmonary: Yes dyspnea Cardiovascular: Yes edema Gastrointestional: Yes: no symptom reported Musculoskeletal: Yes: muscle stiffness Skin: Yes no symptom reported Psychiatric/Neurological: Yes: no symptom reported Endocrine: Yes: no symptom reported Physical Exam General Appearance: no apparent distress Skin: warm Respiratory: decreased breath sounds Abdomen: soft Extremities: edema Assessment Assessment IMP SEVERE HYPONATREMIA-IMPROVING URINARY RETENTION LE EDEMA DM II HTN HYPOTHYROIDISM CHF LOW MAG PLAN DIURESIS WITH LOOP DIURETICS CARDIOLOGY EVALUATION REPLACE K AND MAG MAINTAIN PEPPER STOP SALINE WILL FOLLOW DU VELAZQUEZ MD Jun 16, 2019 11:30
[2019-06-16] MEDS ORDERED: METOPROLOL SUCC 24HR ER 25 MG TAB.ER.24H. PO ONE (12:00)
--- NOTE | 2019-06-16 12:02 | PDOC ---
[employer] PROGRESS NOTE Chief Complaint Chief Complaint CHF exacerbation Hyponatremia Urinary retention Hyperglycemia History of Present Illness History of Present Illness 06/16/19 Pt was seen and examined in seat Pt was not in acute distress Pt was hard of hearing Pt complained of right knee pain Saniya and labs reviewed Sodium was 124, up from 123 BUN was 20, down from 22 Cr remained 0.9 EF was 15-20% D/w RN and and Dr. Park 06/15/19 Pt seen and examined in seat Pt was not in acute distress Chart and labs reviewed Sodium was 123, up from 122 BUN was 22, down from 24 Cr remained 0.9 D/w RN Vitals/I&O Vitals/I&O: Vital Signs Date Time Temp Pulse Resp B/P (MAP) Pulse Ox O2 Delivery O2 Flow Rate FiO2 06/16/19 08:00 Room Air 06/16/19 07:00 97.5 99 18 113/69 (84) 96 97.5 I & O 06/15/19 06/15/19 06/16/19 15:00 23:00 07:00 Intake Total 390 ml 360 ml 60 ml Output Total 900 ml 400 ml 450 ml Balance -510 ml -40 ml -390 ml Physical Exam General: Alert, Oriented X3, Cooperative, mild distress Heart: Regular rate (SR/ST), Normal S1, Normal S2, Other (S4; distant heart sounds) Lungs: Clear Abdomen: Normal bowel sounds, Soft Extremities: No cyanosis, Other (4+ bilateral LE pitting edema) Skin: No breakdown, No significant lesion Labs Labs: Laboratory Tests Test 06/15/19 16:23 06/15/19 21:12 06/16/19 05:00 Glucose (Fingerstick) 149 mg/dL (70-99) 148 mg/dL (70-99) Sodium Level 124 mmol/L (136-145) Potassium Level 3.5 mmol/L (3.5-5.1) Chloride Level 88 mmol/L (98-107) Carbon Dioxide Level 25 mmol/L (21-32) Anion Gap 11 (6-14) Blood Urea Nitrogen 20 mg/dL (7-20) Creatinine 0.9 mg/dL (0.6-1.0) Estimated GFR (Cockcroft-Gault) 60.7 Glucose Level 151 mg/dL (70-99) Calcium Level 8.6 mg/dL (8.5-10.1) Phosphorus Level 3.3 mg/dL (2.6-4.7) Magnesium Level 1.2 mg/dL (1.8-2.4) Review of Systems Review of Systems: Pt co R knee pain Pt denies fever Assessment and Plan Assessmemt and Plan Problems Medical Problems: (1) CHF exacerbation Status: Acute (2) Hyperglycemia Status: Acute (3) Hyponatremia Status: Acute Assessment CHF exacerbation Hyponatremia Hyperglycemia Plan ICU monitoring Serial labs. Trend sodium DVT prophylaxis Fluid restriction 1500 Diuresis Full code Home meds PT/OT DC to SNU when ok with cardiology and nephrology Comment Review of Relevant I have reviewed the following items kameron (where applicable) has been applied. Medications: Current Medications Medications (Trade) Dose Ordered Sig/Carlos Manuel Route PRN Reason Start Time Stop Time Status Last Admin Dose Admin Furosemide (Lasix) 40 mg Q8HRS IVP 06/15/19 14:00 06/16/19 06:45 Magnesium Sulfate 100 ml @ 25 mls/hr 1X ONCE IV 06/15/19 14:00 06/15/19 17:59 DC 06/15/19 14:46 Aspirin (Ecotrin) 81 mg [id number] PO 06/15/19 18:00 06/16/19 09:38 Zolpidem Tartrate (Ambien) 5 mg PRN QHS PRN PO INSOMNIA 06/15/19 18:15 06/15/19 22:36 Acetaminophen (Tylenol) 650 mg PRN Q4HRS PRN PO MILD PAIN 1-3 06/16/19 02:45 06/16/19 03:12 CHELSEA HONG III DO Jun 16, 2019 12:02
[2019-06-16] MEDS: ENOXAPARIN 40 MG/0.4 ML SYRINGE. SQ SCH (12:14)
[2019-06-16] MEDS: NYSTATIN TOPICAL POWDER 15GM BOTTLE. TP SCH ×2 (12:34→20:36)
--- NOTE | 2019-06-16 13:54 | CARD ---
MR#: [id number] Date of Study: 06/15/2019 Ordering Physician: ANGELO PADILLA, Referring Physician: ANGELO PADILLA Tech: Kelly Castro DESTINY APPROVED REPORT EXAM: Two-dimensional and M-mode echocardiogram with Doppler and color Doppler. Other Information Quality : AverageHR: 100bpm Rhythm : Tachycardia INDICATION Congestive Heart Failure 2D DIMENSIONS RVDd3.7 (2.9-3.5cm)Left Atrium(2D)3.9 (1.6-4.0cm) IVSd1.0 (0.7-1.1cm)Aortic Root(2D)2.6 (2.0-3.7cm) LVDd5.5 (3.9-5.9cm)LVOT Diameter1.8 (1.8-2.4cm) PWd0.7 (0.7-1.1cm)LVDs4.7 (2.5-4.0cm) FS (%) 14.6 %SV44.6 ml LVEF(%)30.8 (>50%) M-Mode DIMENSIONS Left Atrium(MM)3.33 (2.5-4.0cm)Aortic Root3.05 (2.2-3.7cm) Aortic Valve AoV Peak Lenin.94.4cm/sAoV VTI14.1cm AO Peak GR.3.6mmHgLVOT VTI 7.33cm AO Mean GR.2mmHgAVA (VTI)1.50cm2 Mitral Valve MV E Remhmfgr55.6cm/sMV DECEL GERZ87tf MV A Bquaywyn03.3cm/sE/A Ratio1.1 MV A [id number] TDI Lateral E' P. V6.31cm/sMedial E' P. V8.43cm/s E/Lateral E'12.0E/Medial E'9.0 Tricuspid Valve TR P. Tnwxqpay692ux/sRAP [id number] TR Peak Gr.[id number] LEFT VENTRICLE The left ventricle is normal size. There is normal left ventricular wall thickness. The left ventricu lar systolic function is severely impaired. The Ejection Fraction is 15-20%. There is global hypokine sis of the left ventricle. RIGHT VENTRICLE The right ventricle is mildly dilated. There is normal right ventricular wall thickness. Systolic fun ction is mildly reduced. ATRIA The left atrium is borderline dilated. The right atrium is moderately dilated. The interatrial septum is intact with no evidence for an atrial septal defect or patent foramen ovale as noted on 2-D or Do ppler imaging. AORTIC VALVE The aortic valve is mildly to moderately sclerotic. The aortic valve is trileaflet. Doppler and Color Flow revealed trace to mild aortic regurgitation. There is no significant aortic valvular stenosis. MITRAL VALVE The mitral valve is thickened but opens well. There is no evidence of mitral valve prolapse. There is no mitral valve stenosis. Doppler and Color-flow revealed mild mitral regurgitation. TRICUSPID VALVE The tricuspid valve is normal in structure and function. Doppler and Color Flow revealed mild tricusp id regurgitation. There is mild pulmonary hypertension. The PA pressure was estimated at 45 mmHg. The re is no tricuspid valve prolapse or vegetation. There is no tricuspid valve stenosis. PULMONIC VALVE The pulmonic valve is not well visualized. GREAT VESSELS The aortic root is normal in size. The ascending aorta is normal in size. The IVC is dilated and mk apses <50% with inspiration. PERICARDIAL EFFUSION There is no evidence of significant pericardial effusion. Critical Notification Critical Value: No <Conclusion> The left ventricular systolic function is severely impaired. The Ejection Fraction is 15-20%. Trace to mild aortic regurgitation. Mild mitral regurgitation. Mild tricuspid regurgitation. The PA pressure was estimated at 45 mmHg. There is no evidence of significant pericardial effusion. Signed by : Alexander Sands, Electronically Approved : 06/15/2019 11:12:21
[2019-06-16 14:52] VITALS: BP 105/66
--- NOTE | 2019-06-16 15:39 | RAD ---
EXAM: Chest, single view. HISTORY: Congestive heart failure. COMPARISON: 06/14/2019 FINDINGS: A frontal view of the chest is obtained. There is diffuse lower lobe predominant interstitial infiltrate. There may be superimposed small pleural effusions. There is no pneumothorax. There is a stable cardiac silhouette. IMPRESSION: Diffuse lower lobe predominant interstitial infiltrate with possible small pleural effusions. Electronically signed by: Elvie Guaman MD (06/16/2019 3:35 PM) [place] [id number]
--- NOTE | 2019-06-16 15:56 | PDOC ---
CARDIO Progress Notes Date and Time Date of Service 06/16/2019 Time of Evaluation 1300 Subjective Subjective: No Chest Pain, No Palpitations, No Dizziness, Other (SOA better) Vitals Vitals Vital Signs Date Time Temp Pulse Resp B/P (MAP) Pulse Ox O2 Delivery O2 Flow Rate FiO2 06/16/19 14:52 97.8 92 18 105/66 (79) 97 Room Air 97.8 Weight Weight [ ] Input and Output Intake and Output Intake and Output 06/16/19 07:00 Intake Total 810 ml Output Total 1750 ml Balance -940 ml Intake Oral 810 ml Output Urine Total 1750 ml Laboratory Labs Laboratory Tests Test 06/15/19 16:23 06/15/19 21:12 06/16/19 05:00 06/16/19 12:23 Glucose (Fingerstick) 149 mg/dL (70-99) 148 mg/dL (70-99) 215 mg/dL (70-99) Sodium Level 124 mmol/L (136-145) Potassium Level 3.5 mmol/L (3.5-5.1) Chloride Level 88 mmol/L (98-107) Carbon Dioxide Level 25 mmol/L (21-32) Anion Gap 11 (6-14) Blood Urea Nitrogen 20 mg/dL (7-20) Creatinine 0.9 mg/dL (0.6-1.0) Estimated GFR (Cockcroft-Gault) 60.7 Glucose Level 151 mg/dL (70-99) Calcium Level 8.6 mg/dL (8.5-10.1) Phosphorus Level 3.3 mg/dL (2.6-4.7) Magnesium Level 1.2 mg/dL (1.8-2.4) Review of Systems Constitutional: yes: weakness, alert, oriented Ears/Nose/Throat: Yes: no symptom reported Eyes: Yes: no symptom reported Pulmonary: Yes dyspnea Cardiovascular: Yes edema Gastrointestional: Yes: no symptom reported Musculoskeletal: Yes: muscle stiffness Skin: Yes no symptom reported Psychiatric/Neurological: Yes: no symptom reported Endocrine: Yes: no symptom reported Physical Exam HEENT: Neck Supple W Full Motion Chest: Symmetric LUNGS: Other (basilar crackles) Heart: RRR (SR), murmurs (3/6 systolic murmur to LLS border) Abdomen: Soft N/T Extremities: No Calf Tenderness, Other (4+ bilateral LE pitting edema) Neurology: alert, oriented, follow commands Assessment Assessment 1. Acute systolic CHF 2. Severe CM: EF 15-20% 2. Hyponatremia: due to above 3. Urinary retention: defer to PCP, witt in place 4. Hypothyroidism: TSH not on goal at 7, recent decreased in dosing. per PCP 5. DM2 6. HTN: controlled Recommendations 1. Replace Mg 2. Lasix therapy, responding well 3. Start on toprol. ASA. 4. LHC on Wednesday to delineate any ischemic etiology, discussed risks and benefits and agreeable to proceed. 5. Monitor Na and eventually place on ACEi or entresto depending on LHC result. 6. Will consider for lifevest as well. ANGELO PADILLA RENAL MEDICINE PHYSICIAN Jun 16, 2019 15:56
[2019-06-16 19:35] VITALS: BP 98/59
[2019-06-16] MEDS: ZOLPIDEM 5 MG TABLET. PO PRN (22:54)
[2019-06-16 23:15] VITALS: BP 98/62
[2019-06-17 03:30] VITALS: BP 112/72
[2019-06-17] MEDS: FUROSEMIDE 40 MG/4 ML VIAL. IVP SCH ×3 (05:37→21:11)
[2019-06-17 06:02] LABS: CALCIUM 8.4 mg/dL (8.5-10.1); GFR 53.8; MAGNESIUM 1.2 mg/dL (1.8-2.4); PHOSPHORUS 3.6 mg/dL (2.6-4.7); POTASSIUM 4.1 mmol/L (3.5-5.1)
[2019-06-17 07:00] VITALS: BP 118/73
[2019-06-17] MEDS: NYSTATIN TOPICAL POWDER 15GM BOTTLE. TP SCH ×2 (09:00→21:10)
[2019-06-17] MEDS: ASPIRIN ENTERIC COATED 81 MG TABLET.DR. PO SCH (09:01)
[2019-06-17] MEDS: METOPROLOL SUCC 24HR ER 25 MG TAB.ER.24H. PO SCH (09:01)
[2019-06-17] MEDS: INSULIN LISPRO 300 UNITS/3 ML VIAL. SQ SCH ×3 (09:07→17:29)
[2019-06-17 11:00] VITALS: BP 107/68
--- NOTE | 2019-06-17 11:46 | PDOC ---
PROGRESS NOTES Chief Complaint Chief Complaint 1. Acute systolic CHF 2. Severe CM: EF 15-20% 2. Hyponatremia: due to above 3. Urinary retention: defer to PCP, witt in place 4. Hypothyroidism: TSH not on goal at 7, recent decreased in dosing. per PCP 5. DM2 6. HTN: controlled History of Present Illness History of Present Illness no inc in soa, no cp Im unsure if she came from home or [place] or SNU She is slated for [facility] wednesday and life vest EF 15-20% She had a lot of qs for me about life vest, at least 30 mins in room PLAN: CPM NPO post wednesday mN for [facility] wednesday Life vest Add PT OT Vitals Vitals Vital Signs Date Time Temp Pulse Resp B/P (MAP) Pulse Ox O2 Delivery O2 Flow Rate FiO2 06/17/19 09:01 84 118/73 06/17/19 07:00 97.4 16 96 Room Air 97.4 Physical Exam General: Alert, Oriented X3, Cooperative, mild distress Heart: Regular rate (SR/ST), Normal S1, Normal S2, Other (S4; distant heart sounds) Lungs: Clear Abdomen: Normal bowel sounds, Soft Extremities: No cyanosis, Other (4+ bilateral LE pitting edema) Skin: No breakdown, No significant lesion Labs LABS Laboratory Tests Test 06/16/19 12:23 06/16/19 16:29 06/16/19 20:32 06/17/19 05:00 Glucose (Fingerstick) 215 mg/dL (70-99) 176 mg/dL (70-99) 195 mg/dL (70-99) Sodium Level 122 mmol/L (136-145) Potassium Level 4.1 mmol/L (3.5-5.1) Chloride Level 88 mmol/L (98-107) Carbon Dioxide Level 24 mmol/L (21-32) Anion Gap 10 (6-14) Blood Urea Nitrogen 23 mg/dL (7-20) Creatinine 1.0 mg/dL (0.6-1.0) Estimated GFR (Cockcroft-Gault) 53.8 Glucose Level 163 mg/dL (70-99) Calcium Level 8.4 mg/dL (8.5-10.1) Phosphorus Level 3.6 mg/dL (2.6-4.7) Magnesium Level 1.2 mg/dL (1.8-2.4) Review of Systems Review of Systems soa on exertion, no cp, no abd pain,n,v,d, fevers Assessment and Plan Assessmemt and Plan Problems Medical Problems: (1) CHF exacerbation Status: Acute (2) Hyperglycemia Status: Acute (3) Hyponatremia Status: Acute Comment Review of Relevant I have reviewed the following items kameron (where applicable) has been applied. Labs Laboratory Tests Test 06/15/19 16:23 06/15/19 21:12 06/16/19 05:00 06/16/19 12:23 Glucose (Fingerstick) 149 mg/dL (70-99) 148 mg/dL (70-99) 215 mg/dL (70-99) Sodium Level 124 mmol/L (136-145) Potassium Level 3.5 mmol/L (3.5-5.1) Chloride Level 88 mmol/L (98-107) Carbon Dioxide Level 25 mmol/L (21-32) Anion Gap 11 (6-14) Blood Urea Nitrogen 20 mg/dL (7-20) Creatinine 0.9 mg/dL (0.6-1.0) Estimated GFR (Cockcroft-Gault) 60.7 Glucose Level 151 mg/dL (70-99) Calcium Level 8.6 mg/dL (8.5-10.1) Phosphorus Level 3.3 mg/dL (2.6-4.7) Magnesium Level 1.2 mg/dL (1.8-2.4) Test 06/16/19 16:29 06/16/19 20:32 06/17/19 05:00 Glucose (Fingerstick) 176 mg/dL (70-99) 195 mg/dL (70-99) Sodium Level 122 mmol/L (136-145) Potassium Level 4.1 mmol/L (3.5-5.1) Chloride Level 88 mmol/L (98-107) Carbon Dioxide Level 24 mmol/L (21-32) Anion Gap 10 (6-14) Blood Urea Nitrogen 23 mg/dL (7-20) Creatinine 1.0 mg/dL (0.6-1.0) Estimated GFR (Cockcroft-Gault) 53.8 Glucose Level 163 mg/dL (70-99) Calcium Level 8.4 mg/dL (8.5-10.1) Phosphorus Level 3.6 mg/dL (2.6-4.7) Magnesium Level 1.2 mg/dL (1.8-2.4) Laboratory Tests Test 06/16/19 12:23 06/16/19 16:29 06/16/19 20:32 06/17/19 05:00 Glucose (Fingerstick) 215 mg/dL (70-99) 176 mg/dL (70-99) 195 mg/dL (70-99) Sodium Level 122 mmol/L (136-145) Potassium Level 4.1 mmol/L (3.5-5.1) Chloride Level 88 mmol/L (98-107) Carbon Dioxide Level 24 mmol/L (21-32) Anion Gap 10 (6-14) Blood Urea Nitrogen 23 mg/dL (7-20) Creatinine 1.0 mg/dL (0.6-1.0) Estimated GFR (Cockcroft-Gault) 53.8 Glucose Level 163 mg/dL (70-99) Calcium Level 8.4 mg/dL (8.5-10.1) Phosphorus Level 3.6 mg/dL (2.6-4.7) Magnesium Level 1.2 mg/dL (1.8-2.4) Medications Current Medications Furosemide (Lasix) 40 mg 1X ONCE IVP Last administered on 06/14/19at 20:20; Start 06/14/19 at 19:30; Stop 06/14/19 at 19:35; Status DC Ondansetron HCl (Zofran) 4 mg PRN Q8HRS PRN IV NAUSEA/VOMITING; Start 06/14/19 at 19:30; Stop 06/15/19 at 19:29; Status DC Morphine Sulfate (Morphine Sulfate) 2 mg PRN Q2HR PRN IV PAIN; Start 06/14/19 a t 19:30; Stop 06/15/19 at 19:29; Status DC Acetaminophen (Tylenol) 650 mg PRN Q4HRS PRN PO FEVER Last administered on 06/14/19at 23:16; Start 06/14/19 at 19:30; Stop 06/15/19 at 19:29; Status DC Sodium Chloride 1,000 ml @ 60 mls/hr 1X ONCE IV Last administered on 06/14/19at 20:36; Start 06/14/19 at 19:30; Stop 06/15/19 at 12:09; Status DC Insulin Human Lispro (HumaLOG) 0-5 UNITS TIDWMEALS SQ Last administered on 06/17/19at 09:07; Start 06/15/19 at 08:00 Dextrose (Dextrose 50%-Water Syringe) 12.5 gm PRN Q15MIN PRN IV SEE COMMENTS; Start 06/14/19 at 19:30 Dextrose 250 ml PRN Q15MIN PRN IV SEE COMMENTS; Start 06/14/19 at 19:30 Nystatin (Nystop) 1 meg BID TP Last administered on 06/17/19at 09:00; Start 06/15/19 at 09:00 Furosemide (Lasix) 40 mg DAILY IVP ; Start 06/16/19 at 09:00; Stop 06/15/19 at 13:05; Status DC Furosemide (Lasix) 40 mg 1X ONCE IVP Last administered on 06/15/19at 10:57; Start 06/15/19 at 10:30; Stop 06/15/19 at 10:39; Status DC Enoxaparin Sodium (Lovenox 40mg Syringe) 40 mg Q24H SQ Last administered on 06/16/19at 12:14; Start 06/15/19 at 11:00 Info (CONTRAST GIVEN -- Rx MONITORING) 1 each PRN DAILY PRN MC SEE COMMENTS; Start 06/15/19 at 10:45; Stop 06/17/19 at 10:44; Status DC Furosemide (Lasix) 40 mg 1X ONCE IVP ; Start 06/15/19 at 12:00; Stop 06/15/19 at 13:18; Status DC Furosemide (Lasix) 40 mg Q8HRS IVP Last administered on 06/17/19at 05:37; Start 06/15/19 at 14:00 Magnesium Sulfate 100 ml @ 25 mls/hr 1X ONCE IV Last administered on 06/15/19at 14:46; Start 06/15/19 at 14:00; Stop 06/15/19 at 17:59; Status DC Aspirin (Ecotrin) 81 mg DAILYWBKFT PO Last administered on 06/17/19at 09:01; Start 06/15/19 at 18:00 Zolpidem Tartrate (Ambien) 5 mg PRN QHS PRN PO INSOMNIA Last administered on 06/16/19at 22:54; Start 06/15/19 at 18:15 Acetaminophen (Tylenol) 650 mg PRN Q4HRS PRN PO MILD PAIN 1-3 Last administered on 06/16/19at 03:12; Start 06/16/19 at 02:45 Potassium Chloride (Klor-Con) 20 meq 1X ONCE PO Last administered on 06/16/19at 12:13; Start 06/16/19 at 11:30; Stop 06/16/19 at 11:32; Status DC Magnesium Sulfate 50 ml @ 25 mls/hr 1X ONCE IV Last administered on 06/16/19at 12:15; Start 06/16/19 at 11:30; Stop 06/16/19 at 13:29; Status DC Metoprolol Succinate (Toprol Xl) 25 mg DAILY PO Last administered on 06/17/19at 09:01; Start 06/17/19 at 09:00 Metoprolol Succinate (Toprol Xl) 25 mg 1X ONCE PO Last administered on 06/16/19at 12:13; Start 06/16/19 at 12:00; Stop 06/16/19 at 12:01; Status DC Potassium Chloride (Klor-Con) 20 meq 1X ONCE PO Last administered on 06/16/19at 13:53; Start 06/16/19 at 12:00; Stop 06/16/19 at 12:01; Status DC Magnesium Sulfate 50 ml @ 25 mls/hr 1X ONCE IV ; Start 06/16/19 at 12:00; Stop 06/16/19 at 13:59; Status Cancel Active Scripts Active Reported Atorvastatin Calcium 10 Mg Tablet 1 Tab PO DAILY Metformin Hcl 500 Mg Tablet 500 Mg PO BIDWMEALS Fenofibrate 54 Mg Tablet 1 Tab PO QPM Lotrel 5-10 Mg Capsule (Amlodipine Besylate/Benazepril) 1 Each Capsule 1 Cap PO DAILY Vitamin B-12 (Cyanocobalamin (Vitamin B-12)) 1,000 Mcg Tablet 1,000 Mcg IM QMONTH Pantoprazole Sodium (Pantoprazole Sodium) 40 Mg Tablet.dr 40 Mg PO DAILYAC Levothyroxine Sodium 100 Mcg Tablet 1 Tab PO DAILY Vitals/I & O Vital Sign - Last 24 Hours 06/16/19 06/16/19 06/16/19 06/16/19 12:13 14:52 19:35 20:00 Temp 97.8 97.7 97.8 97.7 Pulse 99 92 85 Resp 18 26 B/P (MAP) 113/69 105/66 (79) 98/59 (72) Pulse Ox 97 91 O2 Delivery Room Air Room Air Room Air 06/16/19 06/17/19 06/17/19 06/17/19 23:15 03:30 07:00 09:01 Temp 97.9 97.7 97.4 97.9 97.7 97.4 Pulse 91 75 89 84 Resp 24 22 16 B/P (MAP) 98/62 (74) 112/72 (85) 118/73 (88) 118/73 Pulse Ox 96 96 96 O2 Delivery Room Air Room Air Room Air Intake and Output 06/16/19 06/16/19 06/17/19 15:00 23:00 07:00 Intake Total 1040 ml 360 ml Output Total 2900 ml 425 ml 700 ml Balance -2900 ml 615 ml -340 ml ANTHONY SOTO MD Jun 17, 2019 11:46
[2019-06-17] MEDS: ENOXAPARIN 40 MG/0.4 ML SYRINGE. SQ SCH (13:04)
--- NOTE | 2019-06-17 13:16 | PDOC ---
PROGRESS NOTES Subjective Subjective Patient seen and examined Objective Objective Vital Signs Date Time Temp Pulse Resp B/P (MAP) Pulse Ox O2 Delivery O2 Flow Rate FiO2 06/17/19 11:00 97.7 80 18 107/68 (81) 96 Room Air 97.7 Intake and Output 06/17/19 07:00 Intake Total 1400 ml Output Total 4025 ml Balance -2625 ml Intake Oral 1400 ml Output Urine Total 4025 ml # Bowel Movements 2 Physical Exam Abdomen: Normal bowel sounds Heart: Regular rate General: No acute distress Lungs: Other (mildly decreased breath sounds) Assessment Assessment Problems Medical Problems: (1) CHF exacerbation Status: Acute (2) Hyperglycemia Status: Acute (3) Hyponatremia Status: Acute Acute systolic heart failure. Ejection fraction of 15-20%. Improving with present treatments including diuresis. We'll continue present medications and mo nitor lab. Severe cardiomyopathy. Left heart catheterization tentatively scheduled for Wednesday. Hypothyroidism. TSH at 7. As per the primary service. Hypertension. Controlled. Diabetes mellitus. As per the primary service. Urinary retention. Ortiz in place. Comment Review of Relevant I have reviewed the following items kameron (where applicable) has been applied. Labs Laboratory Tests Test 06/15/19 16:23 06/15/19 21:12 06/16/19 05:00 06/16/19 12:23 Glucose (Fingerstick) 149 mg/dL (70-99) 148 mg/dL (70-99) 215 mg/dL (70-99) Sodium Level 124 mmol/L (136-145) Potassium Level 3.5 mmol/L (3.5-5.1) Chloride Level 88 mmol/L (98-107) Carbon Dioxide Level 25 mmol/L (21-32) Anion Gap 11 (6-14) Blood Urea Nitrogen 20 mg/dL (7-20) Creatinine 0.9 mg/dL (0.6-1.0) Estimated GFR (Cockcroft-Gault) 60.7 Glucose Level 151 mg/dL (70-99) Calcium Level 8.6 mg/dL (8.5-10.1) Phosphorus Level 3.3 mg/dL (2.6-4.7) Magnesium Level 1.2 mg/dL (1.8-2.4) Test 06/16/19 16:29 06/16/19 20:32 06/17/19 05:00 06/17/19 12:21 Glucose (Fingerstick) 176 mg/dL (70-99) 195 mg/dL (70-99) 116 mg/dL (70-99) Sodium Level 122 mmol/L (136-145) Potassium Level 4.1 mmol/L (3.5-5.1) Chloride Level 88 mmol/L (98-107) Carbon Dioxide Level 24 mmol/L (21-32) Anion Gap 10 (6-14) Blood Urea Nitrogen 23 mg/dL (7-20) Creatinine 1.0 mg/dL (0.6-1.0) Estimated GFR (Cockcroft-Gault) 53.8 Glucose Level 163 mg/dL (70-99) Calcium Level 8.4 mg/dL (8.5-10.1) Phosphorus Level 3.6 mg/dL (2.6-4.7) Magnesium Level 1.2 mg/dL (1.8-2.4) Laboratory Tests Test 06/16/19 16:29 06/16/19 20:32 06/17/19 05:00 06/17/19 12:21 Glucose (Fingerstick) 176 mg/dL (70-99) 195 mg/dL (70-99) 116 mg/dL (70-99) Sodium Level 122 mmol/L (136-145) Potassium Level 4.1 mmol/L (3.5-5.1) Chloride Level 88 mmol/L (98-107) Carbon Dioxide Level 24 mmol/L (21-32) Anion Gap 10 (6-14) Blood Urea Nitrogen 23 mg/dL (7-20) Creatinine 1.0 mg/dL (0.6-1.0) Estimated GFR (Cockcroft-Gault) 53.8 Glucose Level 163 mg/dL (70-99) Calcium Level 8.4 mg/dL (8.5-10.1) Phosphorus Level 3.6 mg/dL (2.6-4.7) Magnesium Level 1.2 mg/dL (1.8-2.4) Medications Current Medications Furosemide (Lasix) 40 mg 1X ONCE IVP Last administered on 06/14/19at 20:20; Start 06/14/19 at 19:30; Stop 06/14/19 at 19:35; Status DC Ondansetron HCl (Zofran) 4 mg PRN Q8HRS PRN IV NAUSEA/VOMITING; Start 06/14/19 at 19:30; Stop 06/15/19 at 19:29; Status DC Morphine Sulfate (Morphine Sulfate) 2 mg PRN Q2HR PRN IV PAIN; Start 06/14/19 at 19:30; Stop 06/15/19 at 19:29; Status DC Acetaminophen (Tylenol) 650 mg PRN Q4HRS PRN PO FEVER Last administered on 06/14/19at 23:16; Start 06/14/19 at 19:30; Stop 06/15/19 at 19:29; Status DC Sodium Chloride 1,000 ml @ 60 mls/hr 1X ONCE IV Last administered on 06/14/19at 20:36; Start 06/14/19 at 19:30; Stop 06/15/19 at 12:09; Status DC Insulin Human Lispro (HumaLOG) 0-5 UNITS TIDWMEALS SQ Last administered on 06/17/19at 09:07; Start 06/15/19 at 08:00 Dextrose (Dextrose 50%-Water Syringe) 12.5 gm PRN Q15MIN PRN IV SEE COMMENTS; Start 06/14/19 at 19:30 Dextrose 250 ml PRN Q15MIN PRN IV SEE COMMENTS; Start 06/14/19 at 19:30 Nystatin (Nystop) 1 meg BID TP Last administered on 06/17/19at 09:00; Start 06/15/19 at 09:00 Furosemide (Lasix) 40 mg DAILY IVP ; Start 06/16/19 at 09:00; Stop 06/15/19 at 13:05; Status DC Furosemide (Lasix) 40 mg 1X ONCE IVP Last administered on 06/15/19at 10:57; Start 06/15/19 at 10:30; Stop 06/15/19 at 10:39; Status DC Enoxaparin Sodium (Lovenox 40mg Syringe) 40 mg Q24H SQ Last administered on 06/17/19at 13:04; Start 06/15/19 at 11:00 Info (CONTRAST GIVEN -- Rx MONITORING) 1 each PRN DAILY PRN MC SEE COMMENTS; Start 06/15/19 at 10:45; Stop 06/17/19 at 10:44; Status DC Furosemide (Lasix) 40 mg 1X ONCE IVP ; Start 06/15/19 at 12:00; Stop 06/15/19 at 13:18; Status DC Furosemide (Lasix) 40 mg Q8HRS IVP Last administered on 06/17/19at 05:37; Start 06/15/19 at 14:00 Magnesium Sulfate 100 ml @ 25 mls/hr 1X ONCE IV Last administered on 06/15at 14:46; Start 06/15/19 at 14:00; Stop 06/15/19 at 17:59; Status DC Aspirin (Ecotrin) 81 mg DAILYWBKFT PO Last administered on 06/17/19at 09:01; Start 06/15/19 at 18:00 Zolpidem Tartrate (Ambien) 5 mg PRN QHS PRN PO INSOMNIA Last administered on 06/16/19at 22:54; Start 06/15/19 at 18:15 Acetaminophen (Tylenol) 650 mg PRN Q4HRS PRN PO MILD PAIN 1-3 Last administered on 06/16/19at 03:12; Start 06/16/19 at 02:45 Potassium Chloride (Klor-Con) 20 meq 1X ONCE PO Last administered on 06/16/19at 12:13; Start 06/16/19 at 11:30; Stop 06/16/19 at 11:32; Status DC Magnesium Sulfate 50 ml @ 25 mls/hr 1X ONCE IV Last administered on 06/16/19at 12:15; Start 06/16/19 at 11:30; Stop 06/16/19 at 13:29; Status DC Metoprolol Succinate (Toprol Xl) 25 mg DAILY PO Last administered on 06/17/19at 09:01; Start 06/17/19 at 09:00 Metoprolol Succinate (Toprol Xl) 25 mg 1X ONCE PO Last administered on 06/16/19at 12:13; Start 06/16/19 at 12:00; Stop 06/16/19 at 12:01; Status DC Potassium Chloride (Klor-Con) 20 meq 1X ONCE PO Last administered on 06/16/19at 13:53; Start 06/16/19 at 12:00; Stop 06/16/19 at 12:01; Status DC Magnesium Sulfate 50 ml @ 25 mls/hr 1X ONCE IV ; Start 06/16/19 at 12:00; Stop 9/27/19 at 13:59; Status Cancel Active Scripts Active Reported Atorvastatin Calcium 10 Mg Tablet 1 Tab PO DAILY Metformin Hcl 500 Mg Tablet 500 Mg PO BIDWMEALS Fenofibrate 54 Mg Tablet 1 Tab PO QPM Lotrel 5-10 Mg Capsule (Amlodipine Besylate/Benazepril) 1 Each Capsule 1 Cap PO DAILY Vitamin B-12 (Cyanocobalamin (Vitamin B-12)) 1,000 Mcg Tablet 1,000 Mcg IM QMONTH Pantoprazole Sodium (Pantoprazole Sodium) 40 Mg Tablet.dr 40 Mg PO DAILYAC Levothyroxine Sodium 100 Mcg Tablet 1 Tab PO DAILY Vitals/I & O Vital Sign - Last 24 Hours 06/16/19 06/16/19 06/16/19 06/16/19 14:52 19:35 20:00 23:15 Temp 97.8 97.7 97.9 97.8 97.7 97.9 Pulse 92 85 91 Resp 18 26 24 B/P (MAP) 105/66 (79) 98/59 (72) 98/62 (74) Pulse Ox 97 91 96 O2 Delivery Room Air Room Air Room Air Room Air 06/17/19 06/17/19 06/17/19 06/17/19 03:30 07:00 09:01 11:00 Temp 97.7 97.4 97.7 97.7 97.4 97.7 Pulse 75 89 84 80 Resp 22 16 18 B/P (MAP) 112/72 (85) 118/73 (88) 118/73 107/68 (81) Pulse Ox 96 96 96 O2 Delivery Room Air Room Air Room Air Intake and Output 06/16/19 06/16/19 06/17/19 15:00 23:00 07:00 Intake Total 1040 ml 360 ml Output Total 2900 ml 425 ml 700 ml Balance -2900 ml 615 ml -340 ml AMAURI RODAS MD Jun 17, 2019 13:16
--- NOTE | 2019-06-17 14:58 | PDOC ---
PROGRESS NOTES Subjective Subjective SEEN IN FOLLOW UP OF HYPONATREMIA AND CKD3 WITH CHF Objective Objective Vital Signs Date Time Temp Pulse Resp B/P (MAP) Pulse Ox O2 Delivery O2 Flow Rate FiO2 06/17/19 11:00 97.7 80 18 107/68 (81) 96 Room Air 97.7 Intake and Output 06/17/19 06:59 Intake Total 1400 ml Output Total 4025 ml Balance -2625 ml Intake Oral 1400 ml Output Urine Total 4025 ml # Bowel Movements 2 Physical Exam Abdomen: Normal bowel sounds, Soft, No tenderness, No hepatosplenomegaly, No masses Heart: Regular rate, Normal S1, Normal S2, No murmurs, Gallops Extremities: Other (1 BLE EDEMA) General: Alert, Oriented X3, Cooperative, No acute distress Lungs: Clear to auscultation, Normal air movement Psych/Mental Status: Mental status NL, Mood NL Diagnosis HEART FAILURE: Cardiomyopathy RENAL FAILURE: Chronic (CKD stage III) Other HYPONATREMIA Assessment Assessment Problems Medical Problems: (1) CHF exacerbation Status: Acute (2) Hyperglycemia Status: Acute (3) Hyponatremia Status: Acute Plan Plan of Care CONT DIURESIS AND FLUID RESTRICTION. SHE HAS SEVERE CARDIOMYOPATHY. FOR POSSIBLE CARDIAC CATH ON WEDNESDAY Comment Review of Relevant I have reviewed the following items kameron (where applicable) has been applied. Labs Laboratory Tests Test 06/15/19 16:23 06/15/19 21:12 06/16/19 05:00 06/16/19 12:23 Glucose (Fingerstick) 149 mg/dL (70-99) 148 mg/dL (70-99) 215 mg/dL (70-99) Sodium Level 124 mmol/L (136-145) Potassium Level 3.5 mmol/L (3.5-5.1) Chloride Level 88 mmol/L (98-107) Carbon Dioxide Level 25 mmol/L (21-32) Anion Gap 11 (6-14) Blood Urea Nitrogen 20 mg/dL (7-20) Creatinine 0.9 mg/dL (0.6-1.0) Estimated GFR (Cockcroft-Gault) 60.7 Glucose Level 151 mg/dL (70-99) Calcium Level 8.6 mg/dL (8.5-10.1) Phosphorus Level 3.3 mg/dL (2.6-4.7) Magnesium Level 1.2 mg/dL (1.8-2.4) Test 06/16/19 16:29 06/16/19 20:32 06/17/19 05:00 06/17/19 12:21 Glucose (Fingerstick) 176 mg/dL (70-99) 195 mg/dL (70-99) 116 mg/dL (70-99) Sodium Level 122 mmol/L (136-145) Potassium Level 4.1 mmol/L (3.5-5.1) Chloride Level 88 mmol/L (98-107) Carbon Dioxide Level 24 mmol/L (21-32) Anion Gap 10 (6-14) Blood Urea Nitrogen 23 mg/dL (7-20) Creatinine 1.0 mg/dL (0.6-1.0) Estimated GFR (Cockcroft-Gault) 53.8 Glucose Level 163 mg/dL (70-99) Calcium Level 8.4 mg/dL (8.5-10.1) Phosphorus Level 3.6 mg/dL (2.6-4.7) Magnesium Level 1.2 mg/dL (1.8-2.4) Laboratory Tests Test 06/16/19 16:29 06/16/19 20:32 06/17/19 05:00 06/17/19 12:21 Glucose (Fingerstick) 176 mg/dL (70-99) 195 mg/dL (70-99) 116 mg/dL (70-99) Sodium Level 122 mmol/L (136-145) Potassium Level 4.1 mmol/L (3.5-5.1) Chloride Level 88 mmol/L (98-107) Carbon Dioxide Level 24 mmol/L (21-32) Anion Gap 10 (6-14) Blood Urea Nitrogen 23 mg/dL (7-20) Creatinine 1.0 mg/dL (0.6-1.0) Estimated GFR (Cockcroft-Gault) 53.8 Glucose Level 163 mg/dL (70-99) Calcium Level 8.4 mg/dL (8.5-10.1) Phosphorus Level 3.6 mg/dL (2.6-4.7) Magnesium Level 1.2 mg/dL (1.8-2.4) Medications Current Medications Furosemide (Lasix) 40 mg 1X ONCE IVP Last administered on 06/14/19at 20:20; Start 06/14/19 at 19:30; Stop 06/14/19 at 19:35; Status DC Ondansetron HCl (Zofran) 4 mg PRN Q8HRS PRN IV NAUSEA/VOMITING; Start 06/14/19 at 19:30; Stop 06/15/19 at 19:29; Status DC Morphine Sulfate (Morphine Sulfate) 2 mg PRN Q2HR PRN IV PAIN; Start 06/14/19 at 19:30; Stop 06/15/19 at 19:29; Status DC Acetaminophen (Tylenol) 650 mg PRN Q4HRS PRN PO FEVER Last administered on 06/14/19at 23:16; Start 06/14/19 at 19:30; Stop 06/15/19 at 19:29; Status DC Sodium Chloride 1,000 ml @ 60 mls/hr 1X ONCE IV Last administered on 06/14/19at 20:36; Start 06/14/19 at 19:30; Stop 06/15/19 at 12:09; Status DC Insulin Human Lispro (HumaLOG) 0-5 UNITS TIDWMEALS SQ Last administered on 06/17/19at 09:07; Start 06/15/19 at 08:00 Dextrose (Dextrose 50%-Water Syringe) 12.5 gm PRN Q15MIN PRN IV SEE COMMENTS; Start 06/14/19 at 19:30 Dextrose 250 ml PRN Q15MIN PRN IV SEE COMMENTS; Start 06/14/19 at 19:30 Nystatin (Nystop) 1 meg BID TP Last administered on 06/17/19at 09:00; Start 06/15/19 at 09:00 Furosemide (Lasix) 40 mg DAILY IVP ; Start 06/16/19 at 09:00; Stop 06/15/19 at 13:05; Status DC Furosemide (Lasix) 40 mg 1X ONCE IVP Last administered on 06/15/19at 10:57; S tart 06/15/19 at 10:30; Stop 06/15/19 at 10:39; Status DC Enoxaparin Sodium (Lovenox 40mg Syringe) 40 mg Q24H SQ Last administered on 06/17/19at 13:04; Start 06/15/19 at 11:00 Info (CONTRAST GIVEN -- Rx MONITORING) 1 each PRN DAILY PRN MC SEE COMMENTS; S tart 06/15/19 at 10:45; Stop 06/17/19 at 10:44; Status DC Furosemide (Lasix) 40 mg 1X ONCE IVP ; Start 06/15/19 at 12:00; Stop 06/15/19 at 13:18; Status DC Furosemide (Lasix) 40 mg Q8HRS IVP Last administered on 06/17/19 14:45; Start 06/15/19 at 14:00 Magnesium Sulfate 100 ml @ 25 mls/hr 1X ONCE IV Last administered on 06/15/19at 14:46; Start 06/15/19 at 14:00; Stop 06/15/19 at 17:59; Status DC Aspirin (Ecotrin) 81 mg DAILYWBKFT PO Last administered on 06/17/19 09:01; Start 06/15/19 at 18:00 Zolpidem Tartrate (Ambien) 5 mg PRN QHS PRN PO INSOMNIA Last administered on 06/16/19 22:54; Start 06/15/19 at 18:15 Acetaminophen (Tylenol) 650 mg PRN Q4HRS PRN PO MILD PAIN 1-3 Last administered on 06/16/19 03:12; Start 06/16/19 at 02:45 Potassium Chloride (Klor-Con) 20 meq 1X ONCE PO Last administered on 06/16/19 12:13; Start 06/16/19 at 11:30; Stop 06/16/19 at 11:32; Status DC Magnesium Sulfate 50 ml @ 25 mls/hr 1X ONCE IV Last administered on 06/16/19 12:15; Start 06/16/19 at 11:30; Stop 06/16/19 at 13:29; Status DC Metoprolol Succinate (Toprol Xl) 25 mg DAILY PO Last administered on 06/17/19 09:01; Start 06/17/19 at 09:00 Metoprolol Succinate (Toprol Xl) 25 mg 1X ONCE PO Last administered on 06/16/19 12:13; Start 06/16/19 at 12:00; Stop 06/16/19 at 12:01; Status DC Potassium Chloride (Klor-Con) 20 meq 1X ONCE PO Last administered on 06/16/19at 13:53; Start 06/16/19 at 12:00; Stop 06/16/19 at 12:01; Status DC Magnesium Sulfate 50 ml @ 25 mls/hr 1X ONCE IV ; Start 06/16/19 at 12:00; Stop 06/16/19 at 13:59; Status Cancel Active Scripts Active Reported Atorvastatin Calcium 10 Mg Tablet 1 Tab PO DAILY Metformin Hcl 500 Mg Tablet 500 Mg PO BIDWMEALS Fenofibrate 54 Mg Tablet 1 Tab PO QPM Lotrel 5-10 Mg Capsule (Amlodipine Besylate/Benazepril) 1 Each Capsule 1 Cap PO DAILY Vitamin B-12 (Cyanocobalamin (Vitamin B-12)) 1,000 Mcg Tablet 1,000 Mcg IM QMONTH Pantoprazole Sodium (Pantoprazole Sodium) 40 Mg Tablet.dr 40 Mg PO DAILYAC Levothyroxine Sodium 100 Mcg Tablet 1 Tab PO DAILY Vitals/I & O Vital Sign - Last 24 Hours 06/16/19 06/16/19 06/16/19 06/17/19 19:35 20:00 23:15 03:30 Temp 97.7 97.9 97.7 97.7 97.9 97.7 Pulse 85 91 75 Resp 26 24 22 B/P (MAP) 98/59 (72) 98/62 (74) 112/72 (85) Pulse Ox 91 96 96 O2 Delivery Room Air Room Air Room Air Room Air 06/17/19 06/17/19 06/17/19 06/17/19 07:00 08:00 09:01 11:00 Temp 97.4 97.7 97.4 97.7 Pulse 89 84 80 Resp 16 18 B/P (MAP) 118/73 (88) 118/73 107/68 (81) Pulse Ox 96 96 O2 Delivery Room Air Room Air Room Air Intake and Output 06/16/19 06/16/19 06/17/19 14:59 22:59 06:59 Intake Total 1040 ml 360 ml Output Total 2900 ml 425 ml 700 ml Balance -2900 ml 615 ml -340 ml JAIRON HOLCOMB MD Jun 17, 2019 14:58
[2019-06-17 15:00] VITALS: BP 97/56
[2019-06-17] MEDS ORDERED: MAGNESIUM SULFATE 2GM 50 ML IV ONE (16:30)
[2019-06-17 19:35] VITALS: BP 103/66
[2019-06-17] MEDS: ZOLPIDEM 5 MG TABLET. PO PRN (22:47)
[2019-06-17 23:15] VITALS: BP 116/69
[2019-06-18 03:00] VITALS: BP 103/66
[2019-06-18] MEDS: FUROSEMIDE 40 MG/4 ML VIAL. IVP SCH ×3 (05:34→21:27)
[2019-06-18 07:00] VITALS: BP 112/72
[2019-06-18] MEDS: INSULIN LISPRO 300 UNITS/3 ML VIAL. SQ SCH ×3 (08:00→17:00)
[2019-06-18] MEDS: ASPIRIN ENTERIC COATED 81 MG TABLET.DR. PO SCH (08:20)
[2019-06-18] MEDS: METOPROLOL SUCC 24HR ER 25 MG TAB.ER.24H. PO SCH (08:22)
[2019-06-18] MEDS: NYSTATIN TOPICAL POWDER 15GM BOTTLE. TP SCH ×2 (09:31→21:27)
--- NOTE | 2019-06-18 10:09 | PDOC ---
PROGRESS NOTES Chief Complaint Chief Complaint 1. Acute systolic CHF 2. Severe CM: EF 15-20% 2. Hyponatremia: due to above 3. Urinary retention: defer to PCP, witt in place 4. Hypothyroidism: TSH not on goal at 7, recent decreased in dosing. per PCP 5. DM2 6. HTN: controlled History of Present Illness History of Present Illness no inc in [place], no cp pt recs SNU She is slated for [facility] wednesday and life vest EF 15-20% She had a lot of qs for me about life vest, at least 30 mins in room SHe is about to BM PLAN: CPM NPO post wednesday mN for [facility] wednesday Life vest SW snu screen Vitals Vitals Vital Signs Date Time Temp Pulse Resp B/P (MAP) Pulse Ox O2 Delivery O2 Flow Rate FiO2 06/18/19 08:22 89 112/72 06/18/19 03:00 97.5 20 96 Room Air 97.5 Physical Exam General: Alert, Oriented X3, Cooperative, No acute distress Heart: Regular rate, Normal S1, Normal S2, No murmurs, Gallops Lungs: Clear Abdomen: Normal bowel sounds, Soft, No tenderness, No hepatosplenomegaly, No masses Extremities: No clubbing, No cyanosis, Other (1 BLE EDEMA) Skin: No rashes, No breakdown, No significant lesion Labs LABS Laboratory Tests Test 06/17/19 12:21 06/17/19 17:21 06/17/19 20:53 Glucose (Fingerstick) 116 mg/dL (70-99) 206 mg/dL (70-99) 179 mg/dL (70-99) Review of Systems Review of Systems neg 14 pt reviewed with her Assessment and Plan Assessmemt and Plan Problems Medical Problems: (1) CHF exacerbation Status: Acute (2) Hyperglycemia Status: Acute (3) Hyponatremia Status: Acute Comment Review of Relevant I have reviewed the following items kameron (where applicable) has been applied. Labs Laboratory Tests Test 06/16/19 12:23 06/16/19 16:29 06/16/19 20:32 06/17/19 05:00 Glucose (Fingerstick) 215 mg/dL (70-99) 176 mg/dL (70-99) 195 mg/dL (70-99) Sodium Level 122 mmol/L (136-145) Potassium Level 4.1 mmol/L (3.5-5.1) Chloride Level 88 mmol/L (98-107) Carbon Dioxide Level 24 mmol/L (21-32) Anion Gap 10 (6-14) Blood Urea Nitrogen 23 mg/dL (7-20) Creatinine 1.0 mg/dL (0.6-1.0) Estimated GFR (Cockcroft-Gault) 53.8 Glucose Level 163 mg/dL (70-99) Calcium Level 8.4 mg/dL (8.5-10.1) Phosphorus Level 3.6 mg/dL (2.6-4.7) Magnesium Level 1.2 mg/dL (1.8-2.4) Test 06/17/19 12:21 06/17/19 17:21 06/17/19 20:53 Glucose (Fingerstick) 116 mg/dL (70-99) 206 mg/dL (70-99) 179 mg/dL (70-99) Laboratory Tests Test 06/17/19 12:21 06/17/19 17:21 06/17/19 20:53 Glucose (Fingerstick) 116 mg/dL (70-99) 206 mg/dL (70-99) 179 mg/dL (70-99) Medications Current Medications Furosemide (Lasix) 40 mg 1X ONCE IVP Last administered on 06/14/19at 20:20; Start 06/14/19 at 19:30; Stop 06/14/19 at 19:35; Status DC Ondansetron HCl (Zofran) 4 mg PRN Q8HRS PRN IV NAUSEA/VOMITING; Start 06/14/19 at 19:30; Stop 06/15/19 at 19:29; Status DC Morphine Sulfate (Morphine Sulfate) 2 mg PRN Q2HR PRN IV PAIN; Start 06/14/19 at 19:30; Stop 06/15/19 at 19:29; Status DC Acetaminophen (Tylenol) 650 mg PRN Q4HRS PRN PO FEVER Last administered on 06/14/19at 23:16; Start 06/14/19 at 19:30; Stop 06/15/19 at 19:29; Status DC Sodium Chloride 1,000 ml @ 60 mls/hr 1X ONCE IV Last administered on 05/22 02/05at 20:36; Start 06/14/19 at 19:30; Stop 06/15/19 at 12:09; Status DC Insulin Human Lispro (HumaLOG) 0-5 UNITS TIDWMEALS SQ Last administered on 06/17/19at 17:29; Start 06/15/19 at 08:00 Dextrose (Dextrose 50%-Water Syringe) 12.5 gm PRN Q15MIN PRN IV SEE COMMENTS; Start 06/14/19 at 19:30 Dextrose 250 ml PRN Q15MIN PRN IV SEE COMMENTS; Start 06/14/19 at 19:30 Nystatin (Nystop) 1 meg BID TP Last administered on 06/18/19at 09:31; Start 06/15/19 at 09:00 Furosemide (Lasix) 40 mg DAILY IVP ; Start 06/16/19 at 09:00; Stop 06/15/19 at 13:05; Status DC Furosemide (Lasix) 40 mg 1X ONCE IVP Last administered on 06/15/19at 10:57; Start 06/15/19 at 10:30; Stop 06/15/19 at 10:39; Status DC Enoxaparin Sodium (Lovenox 40mg Syringe) 40 mg Q24H SQ Last administered on 06/17/19at 13:04; Start 06/15/19 at 11:00 Info (CONTRAST GIVEN -- Rx MONITORING) 1 each PRN DAILY PRN MC SEE COMMENTS; Start 06/15/19 at 10:45; Stop 06/17/19 at 10:44; Status DC Furosemide (Lasix) 40 mg 1X ONCE IVP ; Start 06/15/19 at 12:00; Stop 06/15/19 at 13:18; Status DC Furosemide (Lasix) 40 mg Q8HRS IVP Last administered on 06/18/19at 05:34; Start 06/15/19 at 14:00 Magnesium Sulfate 100 ml @ 25 mls/hr 1X ONCE IV Last administered on 06/15/19at 14:46; Start 06/15/19 at 14:00; Stop 06/15/19 at 17:59; Status DC Aspirin (Ecotrin) 81 mg DAILYWBKFT PO Last administered on 06/18/19at 08:20; Start 06/15/19 at 18:00 Zolpidem Tartrate (Ambien) 5 mg PRN QHS PRN PO INSOMNIA Last administered on 06/17/19at 22:47; Start 06/15/19 at 18:15 Acetaminophen (Tylenol) 650 mg PRN Q4HRS PRN PO MILD PAIN 1-3 Last administered on 06/16/19at 03:12; Start 06/16/19 at 02:45 Potassium Chloride (Klor-Con) 20 meq 1X ONCE PO Last administered on 06/16/19at 12:13; Start 06/16/19 at 11:30; Stop 06/16/19 at 11:32; Status DC Magnesium Sulfate 50 ml @ 25 mls/hr 1X ONCE IV Last administered on 06/16/19at 12:15; Start 06/16/19 at 11:30; Stop 06/16/19 at 13:29; Status DC Metoprolol Succinate (Toprol Xl) 25 mg DAILY PO Last administered on 06/18/19at 08:22; Start 06/17/19 at 09:00 Metoprolol Succinate (Toprol Xl) 25 mg 1X ONCE PO Last administered on 06/16/19at 12:13; Start 06/16/19 at 12:00; Stop 06/16/19 at 12:01; Status DC Potassium Chloride (Klor-Con) 20 meq 1X ONCE PO Last administered on 06/16/19at 13:53; Start 06/16/19 at 12:00; Stop 06/16/19 at 12:01; Status DC Magnesium Sulfate 50 ml @ 25 mls/hr 1X ONCE IV ; Start 06/16/19 at 12:00; Stop 06/16/19 at 13:59; Status Cancel Magnesium Sulfate 50 ml @ 25 mls/hr 1X ONCE IV Last administered on 06/17/19at 17:19; Start 06/17/19 at 16:30; Stop 06/17/19 at 18:29; Status DC Active Scripts Active Reported Atorvastatin Calcium 10 Mg Tablet 1 Tab PO DAILY Metformin Hcl 500 Mg Tablet 500 Mg PO BIDWMEALS Fenofibrate 54 Mg Tablet 1 Tab PO QPM Lotrel 5-10 Mg Capsule (Amlodipine Besylate/Benazepril) 1 Each Capsule 1 Cap PO DAILY Vitamin B-12 (Cyanocobalamin (Vitamin B-12)) 1,000 Mcg Tablet 1,000 Mcg IM QMONTH Pantoprazole Sodium (Pantoprazole Sodium) 40 Mg Tablet.dr 40 Mg PO DAILYAC Levothyroxine Sodium 100 Mcg Tablet 1 Tab PO DAILY Vitals/I & O Vital Sign - Last 24 Hours 06/17/19 06/17/19 06/17/19 06/17/19 11:00 15:00 19:35 19:50 Temp 97.7 97.5 97.4 97.7 97.5 97.4 Pulse 80 82 78 Resp 18 16 19 B/P (MAP) 107/68 (81) 97/56 (70) 103/66 (78) Pulse Ox 96 95 97 O2 Delivery Room Air Room Air Room Air Room Air 06/17/19 06/18/19 06/18/19 23:15 03:00 08:22 Temp 97.7 97.5 97.7 97.5 Pulse 83 76 89 Resp 20 20 B/P (MAP) 116/69 (85) 103/66 (78) 112/72 Pulse Ox 96 96 O2 Delivery Room Air Room Air Intake and Output 06/17/19 06/17/19 06/18/19 14:59 22:59 06:59 Intake Total 180 ml 378 ml 60 ml Output Total 425 ml 700 ml Balance -245 ml 378 ml -640 ml ANTHONY SOTO MD Jun 18, 2019 10:09
[2019-06-18 11:00] VITALS: BP 116/73
[2019-06-18] MEDS: ENOXAPARIN 40 MG/0.4 ML SYRINGE. SQ SCH (12:38)
[2019-06-18 13:37] LABS: CALCIUM 8.6 mg/dL (8.5-10.1); GFR 53.8; MAGNESIUM 1.1 mg/dL (1.8-2.4); PHOSPHORUS 3.4 mg/dL (2.6-4.7); POTASSIUM 3.6 mmol/L (3.5-5.1)
--- NOTE | 2019-06-18 14:39 | PDOC ---
PROGRESS NOTES Subjective Subjective The patient was seen and examined. Objective Objective Vital Signs Date Time Temp Pulse Resp B/P (MAP) Pulse Ox O2 Delivery O2 Flow Rate FiO2 06/18/19 11:00 97.7 75 16 116/73 (87) 95 Room Air 97.7 Intake and Output 06/18/19 07:00 Intake Total 618 ml Output Total 1125 ml Balance -507 ml Intake Oral 618 ml Output Urine Total 1125 ml Stool Total 0 ml # Bowel Movements 4 Physical Exam Abdomen: Normal bowel sounds Heart: Regular rate General: No acute distress Lungs: Other (mildly decreased breath sounds) Assessment Assessment Problems Medical Problems: (1) CHF exacerbation Status: Acute (2) Hyperglycemia Status: Acute (3) Hyponatremia Status: Acute Acute systolic heart failure. Ejection fraction of 15-20%. Improving with present treatments including diuresis. We'll continue present medications and monitor lab. Severe cardiomyopathy. Left heart catheterization tentatively scheduled for mono. Risks and benefits discussed with the patient. She has agreed to proceed. Hypothyroidism. TSH at 7. As per the primary service. Hypertension. Controlled. Diabetes mellitus. As per the primary service. Urinary retention. Ortiz in place. Comment Review of Relevant I have reviewed the following items kameron (where applicable) has been applied. Labs Laboratory Tests Test 06/16/19 16:29 06/16/19 20:32 06/17/19 05:00 06/17/19 12:21 Glucose (Fingerstick) 176 mg/dL (70-99) 195 mg/dL (70-99) 116 mg/dL (70-99) Sodium Level 122 mmol/L (136-145) Potassium Level 4.1 mmol/L (3.5-5.1) Chloride Level 88 mmol/L (98-107) Carbon Dioxide Level 24 mmol/L (21-32) Anion Gap 10 (6-14) Blood Urea Nitrogen 23 mg/dL (7-20) Creatinine 1.0 mg/dL (0.6-1.0) Estimated GFR (Cockcroft-Gault) 53.8 Glucose Level 163 mg/dL (70-99) Calcium Level 8.4 mg/dL (8.5-10.1) Phosphorus Level 3.6 mg/dL (2.6-4.7) Magnesium Level 1.2 mg/dL (1.8-2.4) Test 06/17/19 17:21 06/17/19 20:53 06/18/19 07:45 06/18/19 12:28 Glucose (Fingerstick) 206 mg/dL (70-99) 179 mg/dL (70-99) 143 mg/dL (70-99) 221 mg/dL (70-99) Test 06/18/19 12:35 Sodium Level 121 mmol/L (136-145) Potassium Level 3.6 mmol/L (3.5-5.1) Chloride Level 86 mmol/L (98-107) Carbon Dioxide Level 29 mmol/L (21-32) Anion Gap 6 (6-14) Blood Urea Nitrogen 23 mg/dL (7-20) Creatinine 1.0 mg/dL (0.6-1.0) Estimated GFR (Cockcroft-Gault) 53.8 Glucose Level 197 mg/dL (70-99) Calcium Level 8.6 mg/dL (8.5-10.1) Phosphorus Level 3.4 mg/dL (2.6-4.7) Magnesium Level 1.1 mg/dL (1.8-2.4) Laboratory Tests Test 06/17/19 17:21 06/17/19 20:53 06/18/19 07:45 06/18/19 12:28 Glucose (Fingerstick) 206 mg/dL (70-99) 179 mg/dL (70-99) 143 mg/dL (70-99) 221 mg/dL (70-99) Test 06/18/19 12:35 Sodium Level 121 mmol/L (136-145) Potassium Level 3.6 mmol/L (3.5-5.1) Chloride Level 86 mmol/L (98-107) Carbon Dioxide Level 29 mmol/L (21-32) Anion Gap 6 (6-14) Blood Urea Nitrogen 23 mg/dL (7-20) Creatinine 1.0 mg/dL (0.6-1.0) Estimated GFR (Cockcroft-Gault) 53.8 Glucose Level 197 mg/dL (70-99) Calcium Level 8.6 mg/dL (8.5-10.1) Phosphorus Level 3.4 mg/dL (2.6-4.7) Magnesium Level 1.1 mg/dL (1.8-2.4) Medications Current Medications Furosemide (Lasix) 40 mg 1X ONCE IVP Last administered on 06/14/19 20:20; Start 06/14/19 at 19:30; Stop 06/14/19 at 19:35; Status DC Ondansetron HCl (Zofran) 4 mg PRN Q8HRS PRN IV NAUSEA/VOMITING; Start 06/14/19 at 19:30; Stop 06/15/19 at 19:29; Status DC Morphine Sulfate (Morphine Sulfate) 2 mg PRN Q2HR PRN IV PAIN; Start 06/14/19 at 19:30; Stop 06/15/19 at 19:29; Status DC Acetaminophen (Tylenol) 650 mg PRN Q4HRS PRN PO FEVER Last administered on 06/14/19at 23:16; Start 06/14/19 at 19:30; Stop 06/15/19 at 19:29; Status DC Sodium Chloride 1,000 ml @ 60 mls/hr 1X ONCE IV Last administered on 06/14/19at 20:36; Start 06/14/19 at 19:30; Stop 06/15/19 at 12:09; Status DC Insulin Human Lispro (HumaLOG) 0-5 UNITS TIDWMEALS SQ Last administered on 06/18/19at 12:43; Start 06/15/19 at 08:00 Dextrose (Dextrose 50%-Water Syringe) 12.5 gm PRN Q15MIN PRN IV SEE COMMENTS; Start 06/14/19 at 19:30 Dextrose 250 ml PRN Q15MIN PRN IV SEE COMMENTS; Start 06/14/19 at 19:30 Nystatin (Nystop) 1 meg BID TP Last administered on 06/18/19at 09:31; Start 06/15/19 at 09:00 Furosemide (Lasix) 40 mg DAILY IVP ; Start 06/16/19 at 09:00; Stop 06/15/19 at 13:05; Status DC Furosemide (Lasix) 40 mg 1X ONCE IVP Last administered on 06/15/19at 10:57; Start 06/15/19 at 10:30; Stop 06/15/19 at 10:39; Status DC Enoxaparin Sodium (Lovenox 40mg Syringe) 40 mg Q24H SQ Last administered on 06/18/19at 12:38; Start 06/15/19 at 11:00 Info (CONTRAST GIVEN -- Rx MONITORING) 1 each PRN DAILY PRN MC SEE COMMENTS; Start 06/15/19 at 10:45; Stop 06/17/19 at 10:44; Status DC Furosemide (Lasix) 40 mg 1X ONCE IVP ; Start 06/15/19 at 12:00; Stop 06/15/19 at 13:18; Status DC Furosemide (Lasix) 40 mg Q8HRS IVP Last administered on 06/18/19 05:34; Start 06/15/19 at 14:00 Magnesium Sulfate 100 ml @ 25 mls/hr 1X ONCE IV Last administered on 06/15/19at 14:46; Start 06/15/19 at 14:00; Stop 06/15/19 at 17:59; Status DC Aspirin (Ecotrin) 81 mg DAILYWBKFT PO Last administered on 06/18/19 08:20; Start 06/15/19 at 18:00 Zolpidem Tartrate (Ambien) 5 mg PRN QHS PRN PO INSOMNIA Last administered on 06/17/19at 22:47; Start 06/15/19 at 18:15 Acetaminophen (Tylenol) 650 mg PRN Q4HRS PRN PO MILD PAIN 1-3 Last administered on 06/16/19 03:12; Start 06/16/19 at 02:45 Potassium Chloride (Klor-Con) 20 meq 1X ONCE PO Last administered on 06/16/19 12:13; Start 06/16/19 at 11:30; Stop 06/16/19 at 11:32; Status DC Magnesium Sulfate 50 ml @ 25 mls/hr 1X ONCE IV Last administered on 06/16/19at 12:15; Start 06/16/19 at 11:30; Stop 06/16/19 at 13:29; Status DC Metoprolol Succinate (Toprol Xl) 25 mg DAILY PO Last administered on 06/18/19 08:22; Start 06/17/19 at 09:00 Metoprolol Succinate (Toprol Xl) 25 mg 1X ONCE PO Last administered on 06/16/19 12:13; Start 06/16/19 at 12:00; Stop 06/16/19 at 12:01; Status DC Potassium Chloride (Klor-Con) 20 meq 1X ONCE PO Last administered on 06/16/19at 13:53; Start 06/16/19 at 12:00; Stop 06/16/19 at 12:01; Status DC Magnesium Sulfate 50 ml @ 25 mls/hr 1X ONCE IV ; Start 06/16/19 at 12:00; Stop 06/16/19 at 13:59; Status Cancel Magnesium Sulfate 50 ml @ 25 mls/hr 1X ONCE IV Last administered on 06/17/19at 17:19; Start 06/17/19 at 16:30; Stop 06/17/19 at 18:29; Status DC Active Scripts Active Reported Atorvastatin Calcium 10 Mg Tablet 1 Tab PO DAILY Metformin Hcl 500 Mg Tablet 500 Mg PO BIDWMEALS Fenofibrate 54 Mg Tablet 1 Tab PO QPM Lotrel 5-10 Mg Capsule (Amlodipine Besylate/Benazepril) 1 Each Capsule 1 Cap PO DAILY Vitamin B-12 (Cyanocobalamin (Vitamin B-12)) 1,000 Mcg Tablet 1,000 Mcg IM QMONTH Pantoprazole Sodium (Pantoprazole Sodium) 40 Mg Tablet.dr 40 Mg PO DAILYAC Levothyroxine Sodium 100 Mcg Tablet 1 Tab PO DAILY Vitals/I & O Vital Sign - Last 24 Hours 06/17/19 06/17/19 06/17/19 06/17/19 15:00 19:35 19:50 23:15 Temp 97.5 97.4 97.7 97.5 97.4 97.7 Pulse 82 78 83 Resp 16 19 20 B/P (MAP) 97/56 (70) 103/66 (78) 116/69 (85) Pulse Ox 95 97 96 O2 Delivery Room Air Room Air Room Air Room Air 06/18/19 06/18/19 06/18/19 06/18/19 03:00 07:00 08:00 08:22 Temp 97.5 96.0 97.5 96.0 Pulse 76 78 89 Resp 20 18 B/P (MAP) 103/66 (78) 112/72 (85) 112/72 Pulse Ox 96 95 O2 Delivery Room Air Room Air Room Air 06/18/19 11:00 Temp 97.7 97.7 Pulse 75 Resp 16 B/P (MAP) 116/73 (87) Pulse Ox 95 O2 Delivery Room Air Intake and Output 06/17/19 06/17/19 06/18/19 15:00 23:00 07:00 Intake Total 180 ml 378 ml 60 ml Output Total 425 ml 700 ml Balance -245 ml 378 ml -640 ml AMAURI RODAS MD Jun 18, 2019 14:39
[2019-06-18 15:00] VITALS: BP 109/70
[2019-06-18] MEDS ORDERED: MAGNESIUM SULFATE 2GM 50 ML IV ONE (16:00)
[2019-06-18 19:25] VITALS: BP 117/63
[2019-06-18] MEDS: MAGNESIUM OXIDE 400 MG TABLET PO SCH (21:27)
[2019-06-18] MEDS: ZOLPIDEM 5 MG TABLET. PO PRN (22:21)
[2019-06-18 22:30] VITALS: BP 118/68
[2019-06-19] VITALS (12 sets, daily range): BP systolic 90–137; BP diastolic 51–84
[2019-06-19 05:12] LABS: CALCIUM 8.5 mg/dL (8.5-10.1); GFR 53.8; MAGNESIUM 1.5 mg/dL (1.8-2.4); POTASSIUM 3.6 mmol/L (3.5-5.1)
[2019-06-19] MEDS: FUROSEMIDE 40 MG/4 ML VIAL. IVP SCH ×3 (05:29→20:58)
[2019-06-19] MEDS: INSULIN LISPRO 300 UNITS/3 ML VIAL. SQ SCH ×3 (08:00→18:29)
[2019-06-19] MEDS: ASPIRIN ENTERIC COATED 81 MG TABLET.DR. PO SCH (08:16)
[2019-06-19] MEDS: MAGNESIUM OXIDE 400 MG TABLET PO SCH ×2 (08:16→20:58)
[2019-06-19] MEDS: METOPROLOL SUCC 24HR ER 25 MG TAB.ER.24H. PO SCH (08:17)
[2019-06-19] MEDS: IV NORMAL SALINE 1000ML BAG 1,000 ML IV SCH (09:00)
[2019-06-19 09:21] LABS: PROTHROMBIN TIME PATIENT 14.2 SEC (11.7-14.0)
[2019-06-19] MEDS ORDERED: LIDOCAINE 1% PF 2 ML VIAL. ONE (09:26)
[2019-06-19] MEDS ORDERED: IOHEXOL 300 MG/ML 100ML VIAL. ONE ×2 (09:26→10:08)
[2019-06-19] MEDS ORDERED: fentaNYL PF VIAL 100 MCG/2 ML VIAL ONE (09:33)
[2019-06-19] MEDS ORDERED: MIDAZOLAM HCL/PF 2 MG/2 ML VIAL. ONE (09:33)
[2019-06-19] MEDS ORDERED: VERAPAMIL 5 MG/2 ML VIAL. ONE (09:33)
[2019-06-19] MEDS ORDERED: HEPARIN for IV BOLUS 10,000 UNIT/10 ML VIAL. ONE (09:33)
[2019-06-19] MEDS ORDERED: NITROGLYCERIN 200 MCG/2 ML SYRINGE FOR CATH/VASC LAB. ONE ×2 (09:35→10:32)
[2019-06-19] MEDS ORDERED: BIVALIRUDIN 250 MG VIAL. IV ONE ×2 (10:09→10:45)
--- NOTE | 2019-06-19 10:36 | NUR ---
Patient left for the cath laboratory technician at approx 0930.
[2019-06-19] MEDS ORDERED: CLOPIDOGREL BISULFATE 75 MG TABLET PO ONE (10:45)
[2019-06-19] MEDS ORDERED: fentaNYL PF VIAL 100 MCG/2 ML VIAL IV ONE (10:45)
[2019-06-19] MEDS ORDERED: MIDAZOLAM HCL/PF 2 MG/2 ML VIAL. IV ONE (10:45)
[2019-06-19] MEDS ORDERED: TEMAZEPAM 15 MG CAPSULE PO PRN (10:45)
[2019-06-19] MEDS ORDERED: ASPIRIN CHEWABLE 81 MG TABLET. PO ONE (10:45)
[2019-06-19] MEDS ORDERED: VERAPAMIL 5 MG/2 ML VIAL. IART ONE (10:45)
[2019-06-19] MEDS ORDERED: NITROGLYCERIN 200 MCG/2 ML SYRINGE FOR CATH/VASC LAB. IART ONE (10:45)
[2019-06-19] MEDS ORDERED: IODIXANOL 320 MG/ML 100 ML VIAL. IART ONE (10:45)
[2019-06-19] MEDS ORDERED: LIDOCAINE 1% Multi-Dose 20 ML VIAL. INJ ONE (10:45)
[2019-06-19] MEDS ORDERED: HEPARIN for IV BOLUS 10,000 UNIT/10 ML VIAL. IART ONE (10:45)
[2019-06-19] MEDS ORDERED: CLOPIDOGREL BISULFATE 75 MG TABLET ONE (10:52)
[2019-06-19] MEDS: ENOXAPARIN 40 MG/0.4 ML SYRINGE. SQ SCH (11:00)
[2019-06-19] MEDS ORDERED: CONTRAST GIVEN. MC PRN (11:00)
[2019-06-19] MEDS: IV 1/2 NORMAL SALINE 1,000 ML IV SCH (11:02)
--- NOTE | 2019-06-19 11:02 | PDOC ---
MODERATE SEDATION ASSESSMENT RISKS/ALTERNATIVES Risks/Alternatives Risks and alternatives of this type of sedation and procedure discussed with: RISK/ALTERNATIVES: Patient H & P ON CHART H & P H & P on chart and reviewed for co-morbid conditions and appropriate labs. H&P ON CHART: Yes STATUS PREG STATUS ASSESSED: N/A MEDS/ALLERGIES REVIEWED Meds/Allergies Reviewed Medications and Allergies including time and route of recently administered narcotics and sedatives. MEDS/ALLERGIES REVIEWED: Yes ASA RATING ASA RATING: II AIRWAY ASSESSMENT Airway Assessment Airway patency, oral function limitations, presence of caps, crowns, dentures, partials, and ability to extend neck assessed. AIRWAY ASSESSMENT: Yes MALLAMPATI SCORE MALLAMPATI SCORE: II PRE-SEDATION ASSESSMENT PRE-SEDATION ASSESSMENT: Yes LORENA LEWIS MD Jun 19, 2019 11:02
[2019-06-19] MEDS ORDERED: IOHEXOL 300 MG/ML 100ML VIAL. IART ONE (11:15)
--- NOTE | 2019-06-19 11:35 | PDOC ---
SUBJECTIVE ROS Stable, s/p Cardiac cath this am No complaints OBJECTIVE Vital Signs Vital Signs Date Time Temp Pulse Resp B/P (MAP) Pulse Ox O2 Delivery O2 Flow Rate FiO2 06/19/19 10:45 14 95 Nasal Cannula 2.0 06/19/19 10:45 61 131/88 06/19/19 07:00 97.5 97.5 I & 0 Intake and Output 06/19/19 07:00 Intake Total 478 ml Output Total 2500 ml Balance -2022 ml Intake Oral 478 ml Output Urine Total 2500 ml # Bowel Movements 1 PHYSICAL EXAM Physical Exam General: NAD HEENT: OM moist neck Supple Lungs: Decreased bases Heart: Normal S1, Normal S2, Extremities:bilateral LE pitting edema + Skin: No rash Neuro: grossly normal Ortiz + DIAGNOSIS/ASSESSMENT Assessment & Plan Hyponatremia- Continue Diuresis and Fluid restriction Na improving slowly HypoMg- Replacing CHF exacerbation- On RA On Entresto , Coreg per cardiology Severe CMP - Ejection fraction of 15-20%. Improving with present treatments including diuresis. s/p Left heart catheterization this am - PCI to RCA, LAD and OM per RN report Hypothyroidism. TSH at 7. As per the primary service. Hypertension. Controlled. Diabetes mellitus. As per the primary service. Urinary retention. Ortiz in place. Voiding trial in am, if fails will need Urology Consult COMMENT/RELEVANT DATA Meds Current Medications Medications (Trade) Dose Ordered Sig/Carlos Manuel Start Time Stop Time Status Last Admin Dose Admin Acetaminophen (Tylenol) 650 mg PRN Q4HRS PRN 06/16/19 02:45 06/16/19 03:12 650 MG Aspirin (Children'S Aspirin) 243 mg 1X ONCE 06/19/19 10:45 06/19/19 10:53 DC 06/19/19 10:45 243 MG Aspirin (Ecotrin) 325 mg [id number] 06/20/19 08:00 Atorvastatin Calcium (Lipitor) 40 mg QHS 06/19/19 21:00 Bivalirudin (Angiomax) 250 mg 1X ONCE 06/19/19 10:45 06/19/19 10:53 DC 06/19/19 10:45 250 MG Carvedilol (Coreg) 3.125 mg BIDWMEALS 06/19/19 17:00 Clopidogrel Bisulfate (Plavix) 75 mg DAILYWBKFT 06/20/19 08:00 Dextrose 250 ml PRN Q15MIN PRN 06/14/19 19:30 Dextrose (Dextrose 50%-Water Syringe) 12.5 gm PRN Q15MIN PRN 06/14/19 19:30 Enoxaparin Sodium (Lovenox 40mg Syringe) 40 mg Q24H 06/15/19 11:00 06/18/19 12:38 40 MG Fentanyl Citrate (Fentanyl 2ml Vial) 50 mcg 1X ONCE 06/19/19 10:45 06/19/19 10:53 DC 06/19/19 10:45 50 MCG Furosemide (Lasix) 40 mg Q8HRS 06/15/19 14:00 06/19/19 05:29 40 MG Heparin Sodium (Porcine) (Heparin Sodium) 2,500 unit 1X ONCE 06/19/19 10:45 06/19/19 10:53 DC 06/19/19 10:45 2,500 UNIT Heparin Sodium/ Sodium Chloride (HEPARIN for ARTERIAL LINE FLUSH) 1,000 unit 1X ONCE 06/19/19 10:45 06/19/19 10:53 DC 06/19/19 10:45 1,000 UNIT Info (CONTRAST GIVEN -- Rx MONITORING) 1 each PRN DAILY PRN 06/19/19 11:00 06/21/19 10:59 Cancel Insulin Human Lispro (HumaLOG) 0-5 UNITS TIDWMEALS 06/15/19 08:00 06/18/19 12:43 3 UNITS Iodixanol (Visipaque 320) 100 ml 1X ONCE 06/19/19 10:45 06/19/19 10:46 Cancel Iohexol (Omnipaque 300 Mg/ml) 185 ml 1X ONCE 06/19/19 11:15 06/19/19 11:16 DC 06/19/19 11:12 185 ML Lidocaine HCl (Lidocaine 1% 20ml Vial) 1 ml 1X ONCE 06/19/19 10:45 06/19/19 10:53 DC 06/19/19 10:45 1 ML Lidocaine HCl (Xylocaine-Mpf 1% 2ml Vial) 2 ml STK-MED ONCE 06/19/19 09:26 06/19/19 09:27 DC Magnesium Oxide (Magnesium Oxide) 400 mg BID 06/18/19 21:00 06/20/19 09:01 06/19/19 08:16 400 MG Magnesium Sulfate 50 ml @ 25 mls/hr 1X ONCE 06/18/19 16:00 06/18/19 17:59 DC 06/18/19 15:49 25 MLS/HR Metoprolol Succinate (Toprol Xl) 25 mg 1X ONCE 06/16/19 12:00 06/16/19 12:01 DC 06/16/19 12:13 25 MG Midazolam HCl (Versed) 1 mg 1X ONCE 06/19/19 10:45 06/19/19 10:53 DC 06/19/19 10:45 1 MG Morphine Sulfate (Morphine Sulfate) 2 mg PRN Q2HR PRN 06/14/19 19:30 06/15/19 19:29 DC Nitroglycerin (Nitroglycerin) 400 mcg 1X ONCE 06/19/19 10:45 06/19/19 10:53 DC Nystatin (Nystop) 1 meg BID 06/15/19 09:00 06/18/19 21:27 1 MEG Ondansetron HCl (Zofran) 4 mg PRN Q8HRS PRN 06/14/19 19:30 06/15/19 19:29 DC Potassium Chloride (Klor-Con) 20 meq 1X ONCE 06/16/19 12:00 06/16/19 12:01 DC 06/16/19 13:53 20 MEQ Sacubitril/ Valsartan (Entresto 24 Mg-26 Mg) 1 tab BID 06/19/19 21:00 Sodium Chloride 1,000 ml @ 75 mls/hr [id number] 06/19/19 11:02 Temazepam (Restoril) 15 mg PRN QHS PRN 06/19/19 10:45 Verapamil HCl (Verapamil) 2.5 mg 1X ONCE 06/19/19 10:45 06/19/19 10:53 DC 06/19/19 10:45 2.5 MG Zolpidem Tartrate (Ambien) 5 mg PRN QHS PRN 06/15/19 18:15 06/18/19 22:21 5 MG Lab Laboratory Tests Test 06/18/19 12:28 06/18/19 12:35 06/18/19 17:43 06/18/19 21:11 Glucose (Fingerstick) 221 mg/dL (70-99) 129 mg/dL (70-99) 303 mg/dL (70-99) Sodium Level 121 mmol/L (136-145) Potassium Level 3.6 mmol/L (3.5-5.1) Chloride Level 86 mmol/L (98-107) Carbon Dioxide Level 29 mmol/L (21-32) Anion Gap 6 (6-14) Blood Urea Nitrogen 23 mg/dL (7-20) Creatinine 1.0 mg/dL (0.6-1.0) Estimated GFR (Cockcroft-Gault) 53.8 Glucose Level 197 mg/dL (70-99) Calcium Level 8.6 mg/dL (8.5-10.1) Phosphorus Level 3.4 mg/dL (2.6-4.7) Magnesium Level 1.1 mg/dL (1.8-2.4) Test 06/19/19 04:13 06/19/19 07:47 Prothrombin Time 14.2 SEC (11.7-14.0) Prothromb Time International Ratio 1.1 (0.8-1.1) Sodium Level 124 mmol/L (136-145) Potassium Level 3.6 mmol/L (3.5-5.1) Chloride Level 87 mmol/L (98-107) Carbon Dioxide Level 30 mmol/L (21-32) Anion Gap 7 (6-14) Blood Urea Nitrogen 21 mg/dL (7-20) Creatinine 1.0 mg/dL (0.6-1.0) Estimated GFR (Cockcroft-Gault) 53.8 Glucose Level 160 mg/dL (70-99) Calcium Level 8.5 mg/dL (8.5-10.1) Magnesium Level 1.5 mg/dL (1.8-2.4) Glucose (Fingerstick) 155 mg/dL (70-99) Results All relevant outside records, renal labs, imaging studies, telemetry/EKG's were reviewed. FRANSISCA ABRAHAM MD Jun 19, 2019 11:35
--- NOTE | 2019-06-19 11:38 | PDOC ---
[employer] PROGRESS NOTE Chief Complaint Chief Complaint 1. Acute systolic CHF 2. Severe CM: EF 15-20% 2. Hyponatremia: due to above 3. Urinary retention: defer to PCP, witt in place 4. Hypothyroidism: TSH not on goal at 7, recent decreased in dosing. per PCP 5. DM2 6. 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 Marroquin pt recs SNU She is slated for [facility] wednesday and life vest EF 15-20% She had a lot of questions about life vest, at least 30 mins in room PLAN: CPM NPO post wednesday mN for [facility] wednesday Life vest SW snu screen Vitals/I&O Vitals/I&O: Vital Signs Date Time Temp Pulse Resp B/P (MAP) Pulse Ox O2 Delivery O2 Flow Rate FiO2 06/19/19 10:45 14 95 Nasal Cannula 2.0 06/19/19 10:45 61 131/88 06/19/19 07:00 97.5 97.5 I & O 06/18/19 06/18/19 06/19/19 15:00 23:00 07:00 Intake Total 118 ml 360 ml Output Total 700 ml 900 ml 900 ml Balance -582 ml -900 ml -540 ml Physical Exam Physical Exam: Physical exam deferred due to sterile field General: No acute distress Heart: Regular rate Lungs: Clear Abdomen: Normal bowel sounds Extremities: No clubbing, No cyanosis, Other (1 BLE EDEMA) Skin: No rashes, No breakdown, No significant lesion Labs Labs: Laboratory Tests Test 06/18/19 12:28 06/18/19 12:35 06/18/19 17:43 06/18/19 21:11 Glucose (Fingerstick) 221 mg/dL (70-99) 129 mg/dL (70-99) 303 mg/dL (70-99) Sodium Level 121 mmol/L (136-145) Potassium Level 3.6 mmol/L (3.5-5.1) Chloride Level 86 mmol/L (98-107) Carbon Dioxide Level 29 mmol/L (21-32) Anion Gap 6 (6-14) Blood Urea Nitrogen 23 mg/dL (7-20) Creatinine 1.0 mg/dL (0.6-1.0) Estimated GFR (Cockcroft-Gault) 53.8 Glucose Level 197 mg/dL (70-99) Calcium Level 8.6 mg/dL (8.5-10.1) Phosphorus Level 3.4 mg/dL (2.6-4.7) Magnesium Level 1.1 mg/dL (1.8-2.4) Test 06/19/19 04:13 06/19/19 07:47 Prothrombin Time 14.2 SEC (11.7-14.0) Prothromb Time International Ratio 1.1 (0.8-1.1) Sodium Level 124 mmol/L (136-145) Potassium Level 3.6 mmol/L (3.5-5.1) Chloride Level 87 mmol/L (98-107) Carbon Dioxide Level 30 mmol/L (21-32) Anion Gap 7 (6-14) Blood Urea Nitrogen 21 mg/dL (7-20) Creatinine 1.0 mg/dL (0.6-1.0) Estimated GFR (Cockcroft-Gault) 53.8 Glucose Level 160 mg/dL (70-99) Calcium Level 8.5 mg/dL (8.5-10.1) Magnesium Level 1.5 mg/dL (1.8-2.4) Glucose (Fingerstick) 155 mg/dL (70-99) Review of Systems Review of Systems: Unable to obtain ROS due to pt sedation Assessment and Plan Assessmemt and Plan Problems Medical Problems: (1) CHF exacerbation Status: Acute (2) Hyperglycemia Status: Acute (3) Hyponatremia Status: Acute Assessment Acute systolic CHF Severe Cardiomyopathy Hyponatremia Urinary retention Hypothyroidism DM2 HTN Plan patient monitor Post cath wound care Life vest Meds per cardio and nephrology Full code Serial labs PT/OT Comment Review of Relevant I have reviewed the following items kameron (where applicable) has been applied. Medications: Current Medications Medications (Trade) Dose Ordered Sig/Carlos Manuel Route PRN Reason Start Time Stop Time Status Last Admin Dose Admin Magnesium Sulfate 50 ml @ 25 mls/hr 1X ONCE IV 06/18/19 16:00 06/18/19 17:59 DC 06/18/19 15:49 Magnesium Oxide (Magnesium Oxide) 400 mg BID PO 06/18/19 21:00 06/20/19 09:01 06/19/19 08:16 Verapamil HCl (Verapamil) 2.5 mg 1X ONCE IART 06/19/19 10:45 06/19/19 10:53 DC 06/19/19 10:45 Heparin Sodium (Porcine) (Heparin Sodium) 2,500 unit 1X ONCE IART 06/19/19 10:45 06/19/19 10:53 DC 06/19/19 10:45 Heparin Sodium/ Sodium Chloride (HEPARIN for ARTERIAL LINE FLUSH) 1,000 unit 1X ONCE IART 06/19/19 10:45 06/19/19 10:53 DC 06/19/19 10:45 Midazolam HCl (Versed) 1 mg 1X ONCE IV 06/19/19 10:45 06/19/19 10:53 DC 06/19/19 10:45 Fentanyl Citrate (Fentanyl 2ml Vial) 50 mcg 1X ONCE IV 06/19/19 10:45 06/19/19 10:53 DC 06/19/19 10:45 Bivalirudin (Angiomax) 250 mg 1X ONCE IV 06/19/19 10:45 06/19/19 10:53 DC 06/19/19 10:45 Clopidogrel Bisulfate (Plavix) 600 mg 1X ONCE PO 06/19/19 10:45 06/19/19 10:53 DC 06/19/19 10:45 Aspirin (Children'S Aspirin) 243 mg 1X ONCE PO 06/19/19 10:45 06/19/19 10:53 DC 06/19/19 10:45 Lidocaine HCl (Lidocaine 1% 20ml Vial) 1 ml 1X ONCE INJ 06/19/19 10:45 06/19/19 10:53 DC 06/19/19 10:45 Iohexol (Omnipaque 300 Mg/ml) 185 ml 1X ONCE IART 06/19/19 11:15 06/19/19 11:16 DC 06/19/19 11:12 CHELSEA HONG III DO Jun 19, 2019 11:38
--- NOTE | 2019-06-19 11:39 | NUR ---
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
--- NOTE | 2019-06-19 11:47 | NUR ---
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 right radial site accessed tr band on and 13 ml in band.
--- NOTE | 2019-06-19 12:54 | NUR ---
pt received fluids after procedure but due to fluid overload issues and per Dr Lizzie levi to non administer 1000 ml bag ordered.
--- NOTE | 2019-06-19 13:01 | NUR ---
pt not receiving Lovenox today due to procedure. ASA given this morning, angiomax given and Plavix received in pre op.
--- NOTE | 2019-06-19 13:22 | NUR ---
SS following up with discharge planning. PT/OT recommended assisted unit. 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 SS phoned and faxed clinical and spoke with Miriam. SS was notified that they would provided PT/OT for pt at [facility]. Pt's RN notified. SS will continue to follow for discharge planning.
--- NOTE | 2019-06-19 14:08 | NUR ---
spoke to Jenise at [facility] about pts admission and procedure with consent from pt and Sister Ami. Gave fax number to [employer] for records to be sent . Jenise Pineda [phone]
[2019-06-19] MEDS: NYSTATIN TOPICAL POWDER 15GM BOTTLE. TP SCH ×2 (14:14→20:59)
[2019-06-19] MEDS: CARVEDILOL 3.125 MG TABLET. PO SCH (18:13)
--- NOTE | 2019-06-19 18:22 | NUR ---
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 all air removed from tr band and the band removed an hour later with complications area cleaned and bandage applied along with armboard. Patient wanted to sit in chair and frequents skipped at that time. all frequents charted vital signs stable, no bleeding to site. Instructions given to the pt regarding protecting the area and no heavy lifting or bending etc. Handouts given.
[2019-06-19] MEDS: SACUBITRIL/VALSARTAN 24/26MG TABLET. PO SCH (21:00)
[2019-06-19] MEDS ORDERED: ATORVASTATIN CALCIUM 40 MG TABLET. PO SCH (21:00)
[2019-06-20] MEDS: IV 1/2 NORMAL SALINE 1,000 ML IV SCH (00:22)
[2019-06-20] MEDS: IV NORMAL SALINE 1000ML BAG 1,000 ML IV SCH (00:50)
[2019-06-20 03:00] VITALS: BP 102/61
[2019-06-20 04:34] LABS: BASO # 0.1 x10^3/uL (0.0-0.2); BASO % 1 % (0-3); EOS # 0.4 x10^3/uL (0.0-0.7); EOS % 5 % (0-3); HEMATOCRIT 35.9 % (36.0-47.0); HEMOGLOBIN 12.3 g/dL (12.0-15.5); LYMPH # 0.7 x10^3/uL (1.0-4.8); LYMPH % 9 % (24-48); MEAN CORPUSCULAR HEMOGLOBIN 31 pg (25-35); MEAN CORPUSCULAR HGB CONC 34 g/dL (31-37); MEAN CORPUSCULAR VOLUME 91 fL (79-100); MONO # 0.7 x10^3/uL (0.0-1.1); MONO % 9 % (0-9); NEUT # 6.2 x10^3/uL (1.8-7.7); NEUT % 76 % (31-73); PLATELET COUNT 350 x10^3/uL (140-400); RED BLOOD COUNT 3.94 x10^6/uL (3.50-5.40); RED CELL DISTRIBUTION WIDTH 14.5 % (11.5-14.5); WHITE BLOOD COUNT 8.1 x10^3/uL (4.0-11.0)
[2019-06-20 04:55] LABS: ALBUMIN 2.2 g/dL (3.4-5.0); ALBUMIN/GLOBULIN RATIO 0.6 (1.0-1.7); CALCIUM 8.3 mg/dL (8.5-10.1); GFR 53.8; MAGNESIUM 1.3 mg/dL (1.8-2.4); POTASSIUM 3.5 mmol/L (3.5-5.1); TOTAL BILIRUBIN 0.6 mg/dL (0.2-1.0); TOTAL PROTEIN 5.6 g/dL (6.4-8.2)
[2019-06-20] MEDS: FUROSEMIDE 40 MG/4 ML VIAL. IVP SCH (05:07)
[2019-06-20 07:00] VITALS: BP 118/62
[2019-06-20] MEDS ORDERED: CLOPIDOGREL BISULFATE 75 MG TABLET PO SCH (08:00)
[2019-06-20] MEDS: INSULIN LISPRO 300 UNITS/3 ML VIAL. SQ SCH ×2 (08:00→12:52)
[2019-06-20] MEDS ORDERED: ASPIRIN ENTERIC COATED 325 MG TABLET.DR. PO SCH (08:00)
[2019-06-20] MEDS: SACUBITRIL/VALSARTAN 24/26MG TABLET. PO SCH ×2 (08:42→17:04)
[2019-06-20] MEDS: CARVEDILOL 3.125 MG TABLET. PO SCH ×2 (08:43→17:00)
[2019-06-20] MEDS: MAGNESIUM OXIDE 400 MG TABLET PO SCH (08:44)
[2019-06-20] MEDS: NYSTATIN TOPICAL POWDER 15GM BOTTLE. TP SCH (09:00)
--- NOTE | 2019-06-20 09:20 | CARD ---
MR#: [id number] Date of Study: 06/19/2019 Ordering Physician: AMAURI RODAS, Referring Physician: AMAURI RODAS, Tech: KRISTOPHER JUNIOR RTR APPROVED REPORT Technologist: KRISTOPHER JUNIOR RTR Nurse: JOSTIN MG RN Procedure(s) performed: 1. Left heart catheterization and selective coronary angiography via right t ransradial approach 2. Successful PCI/drug eluting stents placement to the left anterior descending, left circumflex and right coronary arteries MODERATE SEDATION TIME: 60 MINS FLUORO TIME: 20.5 MIN DOSE: 123 [id number] CONTRAST: 185 OMNI HEART FAILURE CLASS: 4 INDICATION The indication(s) include : Acute systolic heart failure, cardiomyopathy with LVEF 15-20%. [facility] Clinical Frailty Scale [facility] Clinical Frailty Scale: Moderately Frail Heart Failure Heart Failure: Yes If Yes, Newly Diagnosed: Yes If Yes, HF Type: Systolic PROCEDURE NARRATIVE After explaining the risks, benefits and alternative options, informed consent was obtained from robert ent. Patient was brought to the cardiac Detective And Intelligence Analyst and right wrist was prepped and draped in the usual fashion after confirming a positive modified Dalton's test. Arterial access was obtained in the righ t radial artery and a 6 [place] sheath was inserted. 6 [place] Keyon catheter was used to perform chuy ective angiography of the left and right coronary arteries. LVEDP and transaortic gradients remeasure d. Left ventriculography was not performed since echocardiogram showed LVEF 15-20%. The following fin dings were noted. FINDINGS 1. Hemodynamics: Left ventricular end-diastolic pressure of 20 mmHg. No pullback gradient across th e aortic valve. 2. Coronary angiography: a. The left main coronary artery arose from the left sinus of Valsalva, gave rise to the left anteri or descending and left circumflex arteries and did not show any significant stenosis. b. The left anterior descending artery showed 90% stenosis in the midsegment. The diagonal branch sh owed 50% stenosis in the midsegment. c. The left circumflex artery showed 90% stenosis in the proximal segment of the first obtuse margin al branch. d. The right coronary artery was a dominant vessel arising from the right sinus of Valsalva that buzz wed 90% stenosis in the very distal segment. The posterior descending branch showed 70% stenosis in t he proximal segment. INTERVENTION The left main coronary artery was engaged with a 6 [place] XB 3.5 guide catheter and the stenosis in t he left anterior descending artery was crossed with a 0.014 inch [employer] Pro water guidewire. This was predilated with 2.5 x 15 mm trek balloon following which this was successfully treated with a 3.0 x 1 5 mm Vyas Xience Ashly drug-eluting stent. Subsequently, the stenosis in the first obtuse marginal branch of left circumflex artery was crossed with the same Pro water guidewire, predilated with the 2.5 x 15 mm trek balloon and successfully treated with a 2.5 x 28 mm Xience Alpine drug-eluting stent . Follow-up angiorrhaphy showed resolution of both the lesions to 0% with TAINA-3 distal flow. The rig ht coronary artery was then engaged with a 6 [place] JR4 guide catheter, the stenoses in the distal se gment of RCA in the proximal segment of PDA recrossed with the same guidewire, predilated with 2.5 x 15 mm trek balloon following which these lesions were successfully treated with a 2.5 x 18 mm Xience Alpine drug-eluting stent. Follow-up angiography showed resolution of the stenosis to 0% with TAINA-3 distal flow. Patient tolerated the procedure well. Hemostasis was achieved using TR band. There were no immediate complications. TAINA Flow TAINA Flow (Pre-Intervention): TAINA-3 TAINA Flow (Post-Intervention): TAINA-3 TAINA Flow TAINA Flow (Pre-Intervention): TAINA-3 TAINA Flow (Post-Intervention): TAINA-3 TAINA Flow TAINA Flow (Pre-Intervention): TAINA-3 TAINA Flow (Post-Intervention): TAINA-3 Conclusion 1. Severe three-vessel coronary artery disease 2. Successful PCI/drug eluting stents placement to the left anterior descending, left circumflex and right coronary arteries. Recommendations 1. Aspirin 325 mg daily for one month followed by 81 mg daily 2. Plavix 75 mg daily for preferably one year 3. Cardiovascular risk factor modification 4. Optimize medical therapy for ischemic cardiomyopathy and repeat 2-D echo in 3 months to evaluate the need for AICD implantation. Signed by : Alexander Sands, Electronically Approved : 06/19/2019 11:15:38
--- NOTE | 2019-06-20 09:44 | PDOC ---
ANGELO PADILLA FREIGHT CLERK 06/20/19 0944: CARDIO Progress Notes Date and Time Date of Service 06/20/2019 Time of Evaluation 0920 Subjective Subjective: No Chest Pain, No shortness of breath, No Palpitations Vitals Vitals Vital Signs Date Time Temp Pulse Resp B/P (MAP) Pulse Ox O2 Delivery O2 Flow Rate FiO2 06/20/19 08:43 66 118/62 06/20/19 08:00 Room Air 2.0 06/20/19 07:00 97.3 18 94 97.3 Weight Weight [ ] Input and Output Intake and Output Intake and Output 06/20/19 06:59 Intake Total 437 ml Output Total 1550 ml Balance -1113 ml Intake Oral 437 ml Output Urine Total 1550 ml # Bowel Movements 1 Laboratory Labs Laboratory Tests Test 06/19/19 12:28 06/19/19 17:22 06/19/19 21:09 06/20/19 03:45 Glucose (Fingerstick) 148 mg/dL (70-99) 235 mg/dL (70-99) 171 mg/dL (70-99) White Blood Count 8.1 x10^3/uL (4.0-11.0) Red Blood Count 3.94 x10^6/uL (3.50-5.40) Hemoglobin 12.3 g/dL (12.0-15.5) Hematocrit 35.9 % (36.0-47.0) Mean Corpuscular Volume 91 fL (79-100) Mean Corpuscular Hemoglobin 31 pg (25-35) Mean Corpuscular Hemoglobin Concent 34 g/dL (31-37) Red Cell Distribution Width 14.5 % (11.5-14.5) Platelet Count 350 x10^3/uL (140-400) Neutrophils (%) (Auto) 76 % (31-73) Lymphocytes (%) (Auto) 9 % (24-48) Monocytes (%) (Auto) 9 % (0-9) Eosinophils (%) (Auto) 5 % (0-3) Basophils (%) (Auto) 1 % (0-3) Neutrophils # (Auto) 6.2 x10^3/uL (1.8-7.7) Lymphocytes # (Auto) 0.7 x10^3/uL (1.0-4.8) Monocytes # (Auto) 0.7 x10^3/uL (0.0-1.1) Eosinophils # (Auto) 0.4 x10^3/uL (0.0-0.7) Basophils # (Auto) 0.1 x10^3/uL (0.0-0.2) Sodium Level 128 mmol/L (136-145) Potassium Level 3.5 mmol/L (3.5-5.1) Chloride Level 91 mmol/L (98-107) Carbon Dioxide Level 31 mmol/L (21-32) Anion Gap 6 (6-14) Blood Urea Nitrogen 21 mg/dL (7-20) Creatinine 1.0 mg/dL (0.6-1.0) Estimated GFR (Cockcroft-Gault) 53.8 BUN/Creatinine Ratio 21 (6-20) Glucose Level 143 mg/dL (70-99) Calcium Level 8.3 mg/dL (8.5-10.1) Magnesium Level 1.3 mg/dL (1.8-2.4) Total Bilirubin 0.6 mg/dL (0.2-1.0) Aspartate Amino Transf (AST/SGOT) 22 U/L (15-37) Alanine Aminotransferase (ALT/SGPT) 17 U/L (14-59) Alkaline Phosphatase 51 U/L (46-116) Total Protein 5.6 g/dL (6.4-8.2) Albumin 2.2 g/dL (3.4-5.0) Albumin/Globulin Ratio 0.6 (1.0-1.7) Test 06/20/19 08:02 Glucose (Fingerstick) 148 mg/dL (70-99) Review of Systems Constitutional: yes: weakness, alert, oriented Ears/Nose/Throat: Yes: no symptom reported Eyes: Yes: no symptom reported Pulmonary: Yes dyspnea Cardiovascular: Yes edema Gastrointestional: Yes: no symptom reported Musculoskeletal: Yes: muscle stiffness Skin: Yes no symptom reported Psychiatric/Neurological: Yes: no symptom reported Endocrine: Yes: no symptom reported Physical Exam HEENT: Neck Supple W Full Motion Chest: Symmetric LUNGS: Clear to Auscultation Heart: RRR (SR), murmurs (3/6 systolic murmur to LLS border) Abdomen: Soft N/T Extremities: No Calf Tenderness, Other (1+ bilateral LE pitting edema) Neurology: alert, oriented, follow commands Other Exams right wrist arteriotomy site intact, no redness, swelling, neurovascular status intact. Assessment Assessment 1. Acute systolic CHF: compensated 2. 3V CAD; S/P PCI/DANIEL to RCA, LAD, LCx 2. ICM: EF 15-20% NYHA 2-3 2. Hyponatremia: due to CHF 3. Urinary retention: defer to PCP, witt in place 4. Hypothyroidism: TSH not on goal at 7, recent decreased in dosing, Need to resume replacement defer to PCP 5. DM2 6. HTN: controlled Recommendations 1. Change lasix to PO. K replacement. Maintain K and Mg to 4.0 and 2.0 respectively 2. Daily wt, 2L FR 3. Coreg, statin, entresto. ASA 325 for 1 month then 81 mg therafter. plavix for at least a yr. 4. Lifevest upon DC. Reeval in 3 mo for AICD consideration 5. Follow up in office in 1 month. 6. OK to [facility] 7. BMP LORENA LEWIS MD 06/20/19 1658: CARDIO Progress Notes Assessment Assessment Patient seen and examined. Agree with KILN FIRER's assessment and plan. s/p three-vessel PCI/stent placement yesterday, continue DAPT Acute on chronic systolic heart failure better compensated Agree with LifeVest and repeat 2-D echo in 3 months to evaluate the need for AICD implantation Continue current medical regimen ANGELO PADILLA APRN Jun 20, 2019 09:44 LORENA LEWIS MD Jun 20, 2019 16:58
--- NOTE | 2019-06-20 09:45 | PDOC ---
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 Marroquin pt recs SNU She is slated for [facility] wednesday and life vest EF 15-20% She had a lot of questions about life vest, at least 30 mins in room PLAN: CPM NPO post wednesday mN for [facility] wednesday Life vest SW snu screen Vitals/I&O Vitals/I&O: Vital Signs Date Time Temp Pulse Resp B/P (MAP) Pulse Ox O2 Delivery O2 Flow Rate FiO2 06/20/19 08:43 66 118/62 06/20/19 08:00 Room Air 2.0 06/20/19 07:00 97.3 18 94 97.3 I & O 06/19/19 06/19/19 06/20/19 14:59 22:59 06:59 Intake Total 237 ml 200 ml Output Total 800 ml 750 ml Balance -800 ml 237 ml -550 ml Physical Exam General: Alert, Oriented X3, Cooperative, No acute distress Heart: Regular rate Lungs: Clear Abdomen: Normal bowel sounds Extremities: No clubbing, No cyanosis, Other (1 BLE EDEMA) Skin: No rashes, No breakdown, No significant lesion Labs Labs: Laboratory Tests Test 06/19/19 12:28 06/19/19 17:22 06/19/19 21:09 06/20/19 03:45 Glucose (Fingerstick) 148 mg/dL (70-99) 235 mg/dL (70-99) 171 mg/dL (70-99) White Blood Count 8.1 x10^3/uL (4.0-11.0) Red Blood Count 3.94 x10^6/uL (3.50-5.40) Hemoglobin 12.3 g/dL (12.0-15.5) Hematocrit 35.9 % (36.0-47.0) Mean Corpuscular Volume 91 fL (79-100) Mean Corpuscular Hemoglobin 31 pg (25-35) Mean Corpuscular Hemoglobin Concent 34 g/dL (31-37) Red Cell Distribution Width 14.5 % (11.5-14.5) Platelet Count 350 x10^3/uL (140-400) Neutrophils (%) (Auto) 76 % (31-73) Lymphocytes (%) (Auto) 9 % (24-48) Monocytes (%) (Auto) 9 % (0-9) Eosinophils (%) (Auto) 5 % (0-3) Basophils (%) (Auto) 1 % (0-3) Neutrophils # (Auto) 6.2 x10^3/uL (1.8-7.7) Lymphocytes # (Auto) 0.7 x10^3/uL (1.0-4.8) Monocytes # (Auto) 0.7 x10^3/uL (0.0-1.1) Eosinophils # (Auto) 0.4 x10^3/uL (0.0-0.7) Basophils # (Auto) 0.1 x10^3/uL (0.0-0.2) Sodium Level 128 mmol/L (136-145) Potassium Level 3.5 mmol/L (3.5-5.1) Chloride Level 91 mmol/L (98-107) Carbon Dioxide Level 31 mmol/L (21-32) Anion Gap 6 (6-14) Blood Urea Nitrogen 21 mg/dL (7-20) Creatinine 1.0 mg/dL (0.6-1.0) Estimated GFR (Cockcroft-Gault) 53.8 BUN/Creatinine Ratio 21 (6-20) Glucose Level 143 mg/dL (70-99) Calcium Level 8.3 mg/dL (8.5-10.1) Magnesium Level 1.3 mg/dL (1.8-2.4) Total Bilirubin 0.6 mg/dL (0.2-1.0) Aspartate Amino Transf (AST/SGOT) 22 U/L (15-37) Alanine Aminotransferase (ALT/SGPT) 17 U/L (14-59) Alkaline Phosphatase 51 U/L (46-116) Total Protein 5.6 g/dL (6.4-8.2) Albumin 2.2 g/dL (3.4-5.0) Albumin/Globulin Ratio 0.6 (1.0-1.7) Test 06/20/19 08:02 Glucose (Fingerstick) 148 mg/dL (70-99) Review of Systems Review of Systems: No nausea, no vomiting No headache, no changes in vision Assessment and Plan Assessmemt and Plan Problems Medical Problems: (1) CHF exacerbation Status: Acute (2) Hyperglycemia Status: Acute (3) Hyponatremia Status: Acute Assessment Systolic CHF Hyponatremia Urinary retention Plan Discharge per cardiology SNU ([facility]) Entresto 24/26 po BID Coreg 12.5 po BID Lasix PO Lifevest upon discharge Full code Comment Review of Relevant I have reviewed the following items kameron (where applicable) has been applied. Medications: Current Medications Medications (Trade) Dose Ordered Sig/Carlos Manuel Route PRN Reason Start Time Stop Time Status Last Admin Dose Admin Temazepam (Restoril) 15 mg PRN QHS PRN PO INSOMNIA 06/19/19 10:45 06/19/19 20:58 Verapamil HCl (Verapamil) 2.5 mg 1X ONCE IART 06/19/19 10:45 06/19/19 10:53 DC 06/19/19 10:45 Heparin Sodium (Porcine) (Heparin Sodium) 2,500 unit 1X ONCE IART 06/19/19 10:45 06/19/19 10:53 DC 06/19/19 10:45 Heparin Sodium/ Sodium Chloride (HEPARIN for ARTERIAL LINE FLUSH) 1,000 unit 1X ONCE IART 06/19/19 10:45 06/19/19 10:53 DC 06/19/19 10:45 Midazolam HCl (Versed) 1 mg 1X ONCE IV 06/19/19 10:45 06/19/19 10:53 DC 06/19/19 10:45 Fentanyl Citrate (Fentanyl 2ml Vial) 50 mcg 1X ONCE IV 06/19/19 10:45 06/19/19 10:53 DC 06/19/19 10:45 Bivalirudin (Angiomax) 250 mg 1X ONCE IV 06/19/19 10:45 06/19/19 10:53 DC 06/19/19 10:45 Clopidogrel Bisulfate (Plavix) 600 mg 1X ONCE PO 06/19/19 10:45 06/19/19 10:53 DC 06/19/19 10:45 Aspirin (Children'S Aspirin) 243 mg 1X ONCE PO 06/19/19 10:45 06/19/19 10:53 DC 06/19/19 10:45 Lidocaine HCl (Lidocaine 1% 20ml Vial) 1 ml 1X ONCE INJ 06/19/19 10:45 06/19/19 10:53 DC 06/19/19 10:45 Iohexol (Omnipaque 300 Mg/ml) 185 ml 1X ONCE IART 06/19/19 11:15 06/19/19 11:16 DC 06/19/19 11:12 Aspirin (Ecotrin) 325 mg DAILYWBKFT PO 06/20/19 08:00 06/20/19 08:48 Clopidogrel Bisulfate (Plavix) 75 mg DAILYWBKFT PO 06/20/19 08:00 06/20/19 08:44 Carvedilol (Coreg) 3.125 mg BIDWMEALS PO 06/19/19 17:00 06/20/19 08:43 Atorvastatin Calcium (Lipitor) 40 mg QHS PO 06/19/19 21:00 06/19/19 20:58 Sacubitril/ Valsartan (Entresto 24 Mg-26 Mg) 1 tab BID PO 06/19/19 21:00 06/20/19 08:42 CHELSEA HONG III DO Jun 20, 2019 09:45
[2019-06-20] MEDS ORDERED: POTASSIUM CHLORIDE 20 MEQ TABLET.ER. PO SCH (10:00)
--- NOTE | 2019-06-20 10:08 | PDOC ---
SUBJECTIVE ROS Stable OBJECTIVE Vital Signs Vital Signs Date Time Temp Pulse Resp B/P (MAP) Pulse Ox O2 Delivery O2 Flow Rate FiO2 06/20/19 08:43 66 118/62 06/20/19 08:00 Room Air 2.0 06/20/19 07:00 97.3 18 94 97.3 I & 0 Intake and Output 06/20/19 07:00 Intake Total 437 ml Output Total 1550 ml Balance -1113 ml Intake Oral 437 ml Output Urine Total 1550 ml # Bowel Movements 1 PHYSICAL EXAM Physical Exam General: NAD HEENT: OM moist neck Supple Lungs: Decreased bases Heart: Normal S1, Normal S2, Extremities:bilateral LE pitting edema + Skin: No rash Neuro: grossly normal Ortiz + DIAGNOSIS/ASSESSMENT Assessment & Plan Hyponatremia- Continue Diuresis and Fluid restriction Na improving, if dced follow up closley with PCP/Card HypoMg- Replace CHF exacerbation- On RA On Entresto , Coreg per cardiology Severe CMP - Ejection fraction of 15-20%. Improving with present treatments including diuresis. s/p PCI/ DANIEL to RCA, LAD, LCx Will be dced with Life vest Hypothyroidism. TSH at 7. As per the primary service. Hypertension. Controlled. Diabetes mellitus. As per the primary service. Urinary retention. Ortiz in place. Voiding trial in am, if fails will need Urology Consult COMMENT/RELEVANT DATA Meds Current Medications Medications (Trade) Dose Ordered Sig/Carlos Manuel Start Time Stop Time Status Last Admin Dose Admin Acetaminophen (Tylenol) 650 mg PRN Q4HRS PRN 06/16/19 02:45 06/16/19 03:12 650 MG Aspirin (Children'S Aspirin) 243 mg 1X ONCE 06/19/19 10:45 06/19/19 10:53 DC 06/19/19 10:45 243 MG Aspirin (Ecotrin) 325 mg DAILYWBKFT 06/20/19 08:00 06/20/19 08:48 325 MG Atorvastatin Calcium (Lipitor) 40 mg QHS 06/19/19 21:00 06/19/19 20:58 40 MG Bivalirudin (Angiomax) 250 mg 1X ONCE 06/19/19 10:45 06/19/19 10:53 DC 06/19/19 10:45 250 MG Carvedilol (Coreg) 3.125 mg BIDWMEALS 06/19/19 17:00 06/20/19 08:43 3.125 MG Clopidogrel Bisulfate (Plavix) 75 mg DAILYWBKFT 06/20/19 08:00 06/20/19 08:44 75 MG Dextrose 250 ml PRN Q15MIN PRN 06/14/19 19:30 Dextrose (Dextrose 50%-Water Syringe) 12.5 gm PRN Q15MIN PRN 06/14/19 19:30 Enoxaparin Sodium (Lovenox 40mg Syringe) 40 mg Q24H 06/15/19 11:00 06/18/19 12:38 40 MG Fentanyl Citrate (Fentanyl 2ml Vial) 50 mcg 1X ONCE 06/19/19 10:45 06/19/19 10:53 DC 06/19/19 10:45 50 MCG Furosemide (Lasix) 40 mg [id number] 06/20/19 16:00 Heparin Sodium (Porcine) (Heparin Sodium) 2,500 unit 1X ONCE 06/19/19 10:45 06/19/19 10:53 DC 06/19/19 10:45 2,500 UNIT Heparin Sodium/ Sodium Chloride (HEPARIN for ARTERIAL LINE FLUSH) 1,000 unit 1X ONCE 06/19/19 10:45 06/19/19 10:53 DC 06/19/19 10:45 1,000 UNIT Info (CONTRAST GIVEN -- Rx MONITORING) 1 each PRN DAILY PRN 06/19/19 11:00 06/21/19 10:59 Cancel Insulin Human Lispro (HumaLOG) 0-5 UNITS TIDWMEALS 06/15/19 08:00 06/19/19 18:29 3 UNITS Iodixanol (Visipaque 320) 100 ml 1X ONCE 06/19/19 10:45 06/19/19 10:46 Cancel Iohexol (Omnipaque 300 Mg/ml) 185 ml 1X ONCE 06/19/19 11:15 06/19/19 11:16 DC 06/19/19 11:12 185 ML Lidocaine HCl (Lidocaine 1% 20ml Vial) 1 ml 1X ONCE 06/19/19 10:45 06/19/19 10:53 DC 06/19/19 10:45 1 ML Lidocaine HCl (Xylocaine-Mpf 1% 2ml Vial) 2 ml STK-MED ONCE 06/19/19 09:26 06/19/19 09:27 DC Magnesium Oxide (Magnesium Oxide) 400 mg BID 06/18/19 21:00 06/20/19 09:01 DC 06/20/19 08:44 400 MG Magnesium Sulfate 50 ml @ 25 mls/hr 1X ONCE 06/18/19 16:00 06/18/19 17:59 DC 06/18/19 15:49 25 MLS/HR Metoprolol Succinate (Toprol Xl) 25 mg 1X ONCE 06/16/19 12:00 06/16/19 12:01 DC 06/16/19 12:13 25 MG Midazolam HCl (Versed) 1 mg 1X ONCE 06/19/19 10:45 06/19/19 10:53 DC 06/19/19 10:45 1 MG Morphine Sulfate (Morphine Sulfate) 2 mg PRN Q2HR PRN 06/14/19 19:30 06/15/19 19:29 DC Nitroglycerin (Nitroglycerin) 400 mcg 1X ONCE 06/19/19 10:45 06/19/19 10:53 DC Nystatin (Nystop) 1 meg BID 06/15/19 09:00 06/19/19 20:59 1 MEG Ondansetron HCl (Zofran) 4 mg PRN Q8HRS PRN 06/14/19 19:30 06/15/19 19:29 DC Potassium Chloride (Klor-Con) 20 meq DAILYWBKFT 06/20/19 10:00 Sacubitril/ Valsartan (Entresto 24 Mg-26 Mg) 1 tab BID 06/19/19 21:00 06/20/19 08:42 1 TAB Sodium Chloride 1,000 ml @ 75 mls/hr [id number] 06/19/19 11:02 Temazepam (Restoril) 15 mg PRN QHS PRN 06/19/19 10:45 06/19/19 20:58 15 MG Verapamil HCl (Verapamil) 2.5 mg 1X ONCE 06/19/19 10:45 06/19/19 10:53 DC 06/19/19 10:45 2.5 MG Zolpidem Tartrate (Ambien) 5 mg PRN QHS PRN 06/15/19 18:15 06/19/19 13:22 DC 06/18/19 22:21 5 MG Lab Laboratory Tests Test 06/19/19 12:28 06/19/19 17:22 06/19/19 21:09 06/20/19 03:45 Glucose (Fingerstick) 148 mg/dL (70-99) 235 mg/dL (70-99) 171 mg/dL (70-99) White Blood Count 8.1 x10^3/uL (4.0-11.0) Red Blood Count 3.94 x10^6/uL (3.50-5.40) Hemoglobin 12.3 g/dL (12.0-15.5) Hematocrit 35.9 % (36.0-47.0) Mean Corpuscular Volume 91 fL (79-100) Mean Corpuscular Hemoglobin 31 pg (25-35) Mean Corpuscular Hemoglobin Concent 34 g/dL (31-37) Red Cell Distribution Width 14.5 % (11.5-14.5) Platelet Count 350 x10^3/uL (140-400) Neutrophils (%) (Auto) 76 % (31-73) Lymphocytes (%) (Auto) 9 % (24-48) Monocytes (%) (Auto) 9 % (0-9) Eosinophils (%) (Auto) 5 % (0-3) Basophils (%) (Auto) 1 % (0-3) Neutrophils # (Auto) 6.2 x10^3/uL (1.8-7.7) Lymphocytes # (Auto) 0.7 x10^3/uL (1.0-4.8) Monocytes # (Auto) 0.7 x10^3/uL (0.0-1.1) Eosinophils # (Auto) 0.4 x10^3/uL (0.0-0.7) Basophils # (Auto) 0.1 x10^3/uL (0.0-0.2) Sodium Level 128 mmol/L (136-145) Potassium Level 3.5 mmol/L (3.5-5.1) Chloride Level 91 mmol/L (98-107) Carbon Dioxide Level 31 mmol/L (21-32) Anion Gap 6 (6-14) Blood Urea Nitrogen 21 mg/dL (7-20) Creatinine 1.0 mg/dL (0.6-1.0) Estimated GFR (Cockcroft-Gault) 53.8 BUN/Creatinine Ratio 21 (6-20) Glucose Level 143 mg/dL (70-99) Calcium Level 8.3 mg/dL (8.5-10.1) Magnesium Level 1.3 mg/dL (1.8-2.4) Total Bilirubin 0.6 mg/dL (0.2-1.0) Aspartate Amino Transf (AST/SGOT) 22 U/L (15-37) Alanine Aminotransferase (ALT/SGPT) 17 U/L (14-59) Alkaline Phosphatase 51 U/L (46-116) Total Protein 5.6 g/dL (6.4-8.2) Albumin 2.2 g/dL (3.4-5.0) Albumin/Globulin Ratio 0.6 (1.0-1.7) Test 06/20/19 08:02 Glucose (Fingerstick) 148 mg/dL (70-99) Results All relevant outside records, renal labs, imaging studies, telemetry/EKG's were reviewed. FRANSISCA ABRAHAM MD Jun 20, 2019 10:08
[2019-06-20 11:00] VITALS: BP_SYST 100; BP_SYST 99; BP_DIAS 56
[2019-06-20] MEDS: ENOXAPARIN 40 MG/0.4 ML SYRINGE. SQ SCH (11:00)
[2019-06-20] MEDS ORDERED: CLOP75TA PO (11:23)
--- NOTE | 2019-06-20 11:25 | SNU/HH DC ---
DISCHARGE ORDERS DISCHARGE INFORMATION: FINAL DIAGNOSIS Problems Medical Problems: (1) CHF exacerbation Status: Acute (2) Hyperglycemia Status: Acute (3) Hyponatremia Status: Acute CONDITION ON DISCHARGE: Stable CODE STATUS: Code Status: Full [facility]: SNF STAY <30 DAYS: Yes HOSPICE: HOSPICE: No HOSPICE EVAL & TREAT: No POST DISCHARGE ORDERS: ACTIVITY ORDERS: Activity as tolerated DIET AFTER DISCHARGE: Cardiac TREATMENT/EQUIPMENT ORDERS: Physical Therapy For: Evalulation/Treatment Occupational Therapy For: Evaluation/Treatment DISCHARGE MEDICATIONS: Home Meds Active Scripts Clopidogrel Bisulfate (CLOPIDOGREL) 75 Mg Tablet, 75 MG PO DAILYWBKFT for antiplatlet for 90 Days, #90 TAB Prov:CASTLE,NIAL K III DO 06/20/19 Reported Medications Atorvastatin Calcium (ATORVASTATIN CALCIUM) 10 Mg Tablet, 1 TAB PO DAILY for HLD, #30 TAB 5 Refills 06/14/19 Fenofibrate (FENOFIBRATE) 54 Mg Tablet, 1 TAB PO QPM for HLD, #30 TAB 5 Refills 06/14/19 Amlodipine Besylate/Benazepril (LOTREL 5-10 MG CAPSULE) 1 Each Capsule, 1 CAP PO DAILY for HTN, #30 CAP 5 Refills 06/14/19 Cyanocobalamin (Vitamin B-12) (VITAMIN B-12) 1,000 Mcg Tablet, 1000 MCG IM QMONTH for Supplement, TAB 06/14/19 Pantoprazole Sodium (PANTOPRAZOLE SODIUM ) 40 Mg Tablet.dr, 40 MG PO DAILYAC for GERD, TAB 06/14/19 Levothyroxine Sodium (LEVOTHYROXINE SODIUM) 100 Mcg Tablet, 1 TAB PO DAILY for Hypothyroidism, #30 TAB 5 Refills 06/14/19 Discontinued Reported Medications Metformin Hcl (METFORMIN HCL) 500 Mg Tablet, 500 MG PO BIDWMEALS for ANTI- DIABETIC, TAB 0 Refills 06/14/19 CASTLE,NIAL K III DO Jun 20, 2019 11:24
[2019-06-20] MEDS ORDERED: CARV3.1210 PO (12:04)
[2019-06-20] MEDS ORDERED: ACET325T9 PO (12:04)
[2019-06-20] MEDS ORDERED: METF500T16 PO (12:04)
[2019-06-20] MEDS ORDERED: ATOR40TA59 PO (12:04)
[2019-06-20] MEDS ORDERED: ASPI325T11 PO (12:04)
[2019-06-20] MEDS ORDERED: POTA20TA4 PO (12:04)
[2019-06-20] MEDS ORDERED: FURO40TA4 PO (12:04)
[2019-06-20] MEDS ORDERED: NYST60PO TP (12:04)
[2019-06-20] MEDS ORDERED: SACU1TAB PO (12:04)
--- NOTE | 2019-06-20 12:10 | SNU/HH DC ---
DISCHARGE ORDERS DISCHARGE INFORMATION: FINAL DIAGNOSIS Problems Medical Problems: (1) CHF exacerbation Status: Acute (2) Hyperglycemia Status: Acute (3) Hyponatremia Status: Acute CONDITION ON DISCHARGE: Stable CODE STATUS: Code Status: Full POST DISCHARGE ORDERS: ACTIVITY ORDERS: Activity as tolerated DIET AFTER DISCHARGE: Cardiac TREATMENT/EQUIPMENT ORDERS: Physical Therapy For: Evalulation/Treatment Occupational Therapy For: Evaluation/Treatment DISCHARGE MEDICATIONS: Home Meds Active Scripts Nystatin (NYSTOP) 60 Gm Powder, 1 [place] TP BID for Yeast Infection for 30 Days, #30 MISC Prov:CASTLE,NIAL K III DO 06/20/19 Furosemide (FUROSEMIDE) 40 Mg Tablet, 40 MG PO [id number] for Diuretic for 30 Days, #30 TAB 0 Refills Prov:CASTLE,NIAL K III DO 06/20/19 Potassium Chloride (KLOR-CON M20) 20 Meq Tab.er.prt, 20 MEQ PO DAILYWBKFT for Supplement for 30 Days, #30 TAB.SR 0 Refills Prov:CASTLE,NIAL K III DO 06/20/19 Acetaminophen (TYLENOL) 325 Mg Tablet, 650 MG PO PRN Q4HRS PRN for MILD PAIN 1-3 for 30 Days, #30 TAB 0 Refills Prov:CASTLE,NIAL K III DO 06/20/19 Sacubitril/Valsartan (Entresto 24 mg-26 mg Tablet) 1 Each Tablet, 1 TAB PO BID for Heart Failure for 30 Days, #60 TAB 0 Refills Prov:CASTLE,NIAL K III DO 06/20/19 Atorvastatin Calcium (ATORVASTATIN CALCIUM) 40 Mg Tablet, 40 MG PO QHS for Cholesterol for 30 Days, #30 TAB 0 Refills Prov:CASTLE,NIAL K III DO 06/20/19 Aspirin (ASPIRIN EC) 325 Mg Tablet.dr, 325 MG PO DAILYWBKFT for Blood Thinner for 30 Days, #30 TAB.SR 0 Refills Prov:CASTLE,NIAL K III DO 06/20/19 Carvedilol (CARVEDILOL ) 3.125 Mg Tablet, 3.125 MG PO BIDWMEALS for Blood Pressure for 30 Days, #60 TAB 0 Refills Prov:CASTLE,NIAL K III DO 06/20/19 Metformin Hcl (METFORMIN HCL) 500 Mg Tablet, 500 MG PO BIDWMEALS for ANTI- DIABETIC for 30 Days, #60 TAB 0 Refills Start on June 21, 2019 Prov:CHELSEA HONG III DO 06/20/19 Clopidogrel Bisulfate (CLOPIDOGREL) 75 Mg Tablet, 75 MG PO DAILYWBKFT for antiplatlet for 90 Days, #90 TAB Prov:CHELSEA HONG III DO 06/20/19 Reported Medications Atorvastatin Calcium (ATORVASTATIN CALCIUM) 10 Mg Tablet, 1 TAB PO DAILY for HLD, #30 TAB 5 Refills 06/14/19 Fenofibrate (FENOFIBRATE) 54 Mg Tablet, 1 TAB PO QPM for HLD, #30 TAB 5 Refills 06/14/19 Cyanocobalamin (Vitamin B-12) (VITAMIN B-12) 1,000 Mcg Tablet, 1000 MCG IM QMONTH for Supplement, TAB 06/14/19 Pantoprazole Sodium (PANTOPRAZOLE SODIUM ) 40 Mg Tablet.dr, 40 MG PO DAILYAC for GERD, TAB 06/14/19 Levothyroxine Sodium (LEVOTHYROXINE SODIUM) 100 Mcg Tablet, 1 TAB PO DAILY for Hypothyroidism, #30 TAB 5 Refills 06/14/19 Discontinued Reported Medications Amlodipine Besylate/Benazepril (LOTREL 5-10 MG CAPSULE) 1 Each Capsule, 1 CAP PO DAILY for HTN, #30 CAP 5 Refills 06/14/19 CHELSEA HONG III DO Jun 20, 2019 12:10
--- NOTE | 2019-06-20 13:32 | NUR ---
SS following up with discharge planning. Discharge order on the chart. SS phoned and faxed discharge orders to [facility]. Life Vest ordered for pt and pt currently awaiting receipt of Life Vest. Sister Roselyn to provide transportation once Life Vest received.
[2019-06-20 15:00] VITALS: BP 99/52
[2019-06-20] MEDS ORDERED: FUROSEMIDE 40 MG TABLET. PO SCH (16:00)
[2019-06-20 17:04] VITALS: BP 99/52
--- NOTE | 2019-06-20 17:05 | NUR ---
Patient is discharged to [facility]. Report given to nursing staff including [facility] Life vest Rep is planing to come and fit the vest to patient this evening. PIV and heart monitor removed. Sister Roselyn is taking patient to the [facility].
--- NOTE | 2019-07-15 09:01 | DS ---
DATE OF DISCHARGE: 06/20/2019 ADMISSION DIAGNOSIS: Acute on chronic systolic and diastolic heart failure. DISCHARGE DIAGNOSES: Resolving heart failure, severe dilated cardiomyopathy and hyponatremia, urinary retention, hypothyroidism, diabetes, hypertension. CONSULTS: Cardiology and Nephrology. HOSPITAL COURSE: The patient is a pleasant middle-aged female who presented with shortness of breath. Basically, she was volume overloaded, had acute on chronic systolic and diastolic heart failure. She has some electrolyte disturbances as well. We admitted the patient, consulted Nephrology and Cardiology. Corrected her electrolytes and got her pressures under control and [facility]up. DISPOSITION: Skilled. ACTIVITY: As tolerated. DIET: Low sodium. MEDICATIONS: Please see the MRAD. TOTAL TIME: 32 minutes. CHELSEA HONG DO DR: ROSELYN/vance JOB#: [id number] / [id number]
== END 2019-06-20 17:10 | DRG 246 ==
LOC: ER 15:24 → 1 WEST ICU 19:35 → 2 SOUTH 06-16 13:46
PROVIDERS: ADMIT Internal Medicine; ATTEND Internal Medicine
PROC: 027236Z Dilation of Coronary Artery, Three Arteries with Three Drug-eluting Intraluminal Devices, Percutaneous Approach (ICD-10-PCS; principal; 2019-06-19)
PROC: 4A023N7 Measurement of Cardiac Sampling and Pressure, Left Heart, Percutaneous Approach (ICD-10-PCS; 2019-06-19)
PROC: B211YZZ Fluoroscopy of Multiple Coronary Arteries using Other Contrast (ICD-10-PCS; 2019-06-19)
DX: I13.0 Hypertensive heart and chronic kidney disease with heart failure and stage 1 through stage 4 chronic kidney disease, or unspecified chronic kidney disease (principal); I50.43 Acute on chronic combined systolic (congestive) and diastolic (congestive) heart failure; E87.1 Hypo-osmolality and hyponatremia; I25.10 Atherosclerotic heart disease of native coronary artery without angina pectoris; K21.9 Gastro-esophageal reflux disease without esophagitis; E78.00 Pure hypercholesterolemia, unspecified; E03.9 Hypothyroidism, unspecified; E11.22 Type 2 diabetes mellitus with diabetic chronic kidney disease; H91.90 Unspecified hearing loss, unspecified ear; E11.65 Type 2 diabetes mellitus with hyperglycemia; E78.5 Hyperlipidemia, unspecified; M19.90 Unspecified osteoarthritis, unspecified site; R33.9 Retention of urine, unspecified; N18.3 Chronic kidney disease, stage 3 (moderate); I25.5 Ischemic cardiomyopathy; Z83.3 Family history of diabetes mellitus
CPT/HCPCS: 36415; 71045; 80048; 80053; 80061; 80307; 81001; 82553; 82962; 83735; 83880; 84100; 84443; 84484; 85007; 85025; 85610; 92928; 93005; 93306; 93458; 96361; 96374; 99152; 99153; C1725; C1769; C1874; C1887; C1892; J0583; J1644; J1650; J1815; J1940; J2250; J3010; J3475; J7030; Q9967; 97116; 97530; 97535; 99285-25; C1713; G0378